=== PATIENT | male | born 1985 | race Caucasian/White ===

== ENCOUNTER 2019-12-21 18:20 | Inpatient (IN) | payer MEDICAID ==
[~2019-12-21] VITALS: Ht 172.7 cm; Wt 94.1 kg
[2019-12-21 20:10] LABS: EOSINOPHILS % (AUTO) 4.2 % (1.0-6.0); HEMATOCRIT 40.1 % (41-53); HEMOGLOBIN 13.2 g/dL (13.5-17.5); LYMPHOCYTES # (AUTO) 2.1 K/uL (1.0-4.8); LYMPHOCYTES % (AUTO) 27.3 % (22.0-44.0); MEAN CORPUSCULAR HEMOGLOBIN 29.9 pg (26.0-34.0); MEAN CORPUSCULAR HGB CONC 32.8 G/dL (31.0-37.0); MEAN CORPUSCULAR VOLUME 91 fL (80-100); MONOCYTES # (AUTO) 0.6 K/uL (0.1-1.0); MONOCYTES % (AUTO) 8.2 % (2.0-9.0); NEUTROPHILS # (AUTO) 4.6 K/uL (1.8-7.7); NEUTROPHILS % (AUTO) 59.3 % (40.0-70.0); PLATELET COUNT (AUTO) 368 K/uL (150-450); RED BLOOD CELL COUNT(AUTO) 4.39 MIL/uL (4.50-5.90)
[2019-12-21 20:18] LABS: AMPHET/METH SCREEN,URINE POSITIVE (NEGATIVE); BARBITURATE SCREEN, URINE NEGATIVE (NEGATIVE); BENZODIAZEPINES SCREEN,URINE NEGATIVE (NEGATIVE); CANNABINOID SCREEN,URINE POSITIVE (NEGATIVE); COCAINE SCREEN,URINE NEGATIVE (NEGATIVE); METHADONE SCREEN, URINE NEGATIVE (NEGATIVE); OPIATE SCREEN,URINE POSITIVE (NEGATIVE)
[2019-12-21 20:19] LABS: PHENCYCLIDINE SCREEN,URINE NEGATIVE (NEGATIVE)
[2019-12-21 20:40] LABS: ANION GAP 4 mmol/L (8-16); CALCIUM, TOTAL 8.6 mg/dL (8.8-10.5); CARBON DIOXIDE 30 mmol/L (22-29); CHLORIDE 105 mmol/L (98-107); CREATININE 0.97 mg/dL (0.60-1.30); GLOMERULAR FILTR. RATE CALC > 60 mL/min (>60); GLUCOSE,RANDOM 111 mg/dL (70-110); POTASSIUM 3.4 mmol/L (3.5-5.1); SODIUM SERUM 139 mmol/L (136-145); UREA NITROGEN, BLOOD 12 mg/dL (7-18)
[2019-12-21 20:47] LABS: ALANINE AMINOTRANSFERASE 29 U/L (12-78); ALBUMIN 3.5 g/dL (3.4-5.0); ALKALINE PHOSPHATASE 86 U/L (46-116); ASPARTATE AMINOTRANSFERASE 11 U/L (15-37); BILIRUBIN,TOTAL 0.2 mg/dL (0.1-1.0); TOTAL PROTEIN, SERUM 6.7 g/dL (6.4-8.2)
[2019-12-21] MEDS ORDERED: HALOPERIDOL LACTATE 5 MG/ML VIAL IM ONE (22:00)
[2019-12-21] MEDS ORDERED: DiphenhydrAMINE HCL 50 MG/ML VIAL IM ONE (22:00)
[2019-12-21] MEDS ORDERED: LORazepam 2 MG/ML VIAL IM ONE (22:00)
[2019-12-21] MEDS ORDERED: HALOPERIDOL 5 MG TABLET PO PRN (22:15)
[2019-12-21] MEDS ORDERED: ZOLPIDEM TARTRATE 10 MG TABLET PO PRN (22:15)
[2019-12-22 01:46] VITALS: BP 138/83
[2019-12-22] MEDS ORDERED: POTASSIUM CHLORIDE 20 MEQ ER TABLET PO ONE (13:00)
[2019-12-22 17:16] VITALS: BP 139/81
[2019-12-22] MEDS: OLANZapine 10 MG TABLET PO SCH (20:26)
[2019-12-22] MEDS: LORazepam 2 MG TABLET PO PRN (20:26)
[2019-12-23] MEDS ORDERED: ACETAMINOPHEN 325 MG TABLET PO PRN (05:00)
[2019-12-23 06:40] VITALS: BP 126/74
[2019-12-23] MEDS ORDERED: PETROLATUM,WHITE 28 GM JELLY TP PRN (07:45)
[2019-12-23] MEDS ORDERED: MAGNESIUM HYDROXIDE SUSPENSION 30 ML UDCUP PO PRN (07:45)
[2019-12-23] MEDS ORDERED: LOPERAMIDE HCL 2 MG CAPSULE PO PRN (07:45)
[2019-12-23] MEDS ORDERED: ALBUTEROL SULFATE HFA 90 MCG/PUFF 8 GM INHALER IH PRN (07:45)
[2019-12-23] MEDS ORDERED: OMEPRAZOLE 20 MG CAPSULE PO PRN (07:45)
[2019-12-23] MEDS ORDERED: ONDANSETRON HCL 4 MG TABLET PO PRN (07:45)
[2019-12-23] MEDS ORDERED: DOCUSATE SODIUM 100 MG CAPSULE PO PRN (07:45)
[2019-12-23] MEDS ORDERED: MAG HYDROX/AL HYDROX/SIMETH ES 30 ML SUSPENSION UDCUP PO PRN (07:45)
[2019-12-23] MEDS ORDERED: BACITRACIN 28 GM OINTMENT TP PRN (07:45)
[2019-12-23] MEDS ORDERED: CloNIDine HCL 0.1 MG TABLET PO PRN (07:45)
[2019-12-23] MEDS ORDERED: BENZOCAINE/MENTHOL LOZENGE PO PRN (07:45)
[2019-12-23] MEDS: LORazepam 2 MG TABLET PO PRN (08:51)
[2019-12-23] MEDS: OLANZapine 10 MG TABLET PO SCH ×2 (08:51→20:17)
[2019-12-23 16:16] VITALS: BP 130/69
[2019-12-24 04:31] VITALS: BP 128/70
[2019-12-24 08:27] VITALS: BP 136/87
[2019-12-24] MEDS: OLANZapine 10 MG TABLET PO SCH ×2 (08:53→20:50)
[2019-12-24] MEDS: LORazepam 2 MG TABLET PO PRN (16:14)
[2019-12-24 16:16] VITALS: BP 129/83
[2019-12-25 05:44] VITALS: BP 134/72
[2019-12-25 08:41] VITALS: BP 137/77
[2019-12-25] MEDS: OLANZapine 10 MG TABLET PO SCH ×2 (09:48→21:00)
[2019-12-25] MEDS: LORazepam 2 MG TABLET PO PRN ×3 (10:20→20:01)
[2019-12-25] MEDS: IBUPROFEN 600 MG TABLET PO PRN (11:00)
[2019-12-25 16:31] VITALS: BP 137/75
[2019-12-26 06:47] VITALS: BP 113/80
[2019-12-26] MEDS: IBUPROFEN 600 MG TABLET PO PRN (08:03)
[2019-12-26] MEDS: OLANZapine 10 MG TABLET PO SCH (08:05)
[2019-12-26 09:23] VITALS: BP 135/78
[2019-12-26] MEDS ORDERED: NICOTINE 21 MG/24 HOUR PATCH TD PRN (10:15)
[2019-12-26] MEDS ORDERED: OLAN5TAB2 PO (11:55)
== END 2019-12-26 13:47 | disposition home or self-care (01) | DRG 750 ==
LOC: EMS 18:21 → B3A 22:30 → B2S 12-25 20:48
DX: F20.0 Paranoid schizophrenia (principal); F12.10 Cannabis abuse, uncomplicated; F15.10 Other stimulant abuse, uncomplicated; R45.851 Suicidal ideations; K59.00 Constipation, unspecified; G47.00 Insomnia, unspecified; F41.9 Anxiety disorder, unspecified; F11.90 Opioid use, unspecified, uncomplicated; Z59.0 Homelessness; Z65.3 Problems related to other legal circumstances; Z72.0 Tobacco use; Z71.51 Drug abuse counseling and surveillance of drug abuser; Z71.6 Tobacco abuse counseling
CPT/HCPCS: 84132; G0480

== ENCOUNTER 2020-02-11 20:23 | Inpatient (IN) | payer MEDICAID ==
[~2020-02-11] VITALS: Ht 175.3 cm; Wt 93.0 kg
[~2020-02-11 20:23] MED LIST: OLAN5TAB2 PO
[2020-02-11 23:04] LABS: EOSINOPHILS % (AUTO) 4.5 % (1.0-6.0); HEMATOCRIT 38.6 % (41-53); HEMOGLOBIN 12.7 g/dL (13.5-17.5); LYMPHOCYTES # (AUTO) 2.1 K/uL (1.0-4.8); LYMPHOCYTES % (AUTO) 24.8 % (22.0-44.0); MEAN CORPUSCULAR HEMOGLOBIN 29.5 pg (26.0-34.0); MEAN CORPUSCULAR VOLUME 89 fL (80-100); MONOCYTES # (AUTO) 0.7 K/uL (0.1-1.0); MONOCYTES % (AUTO) 8.1 % (2.0-9.0); NEUTROPHILS # (AUTO) 5.2 K/uL (1.8-7.7); NEUTROPHILS % (AUTO) 61.6 % (40.0-70.0); PLATELET COUNT (AUTO) 366 K/uL (150-450); RED BLOOD CELL COUNT(AUTO) 4.32 MIL/uL (4.50-5.90); RED CELL DISTRIBUTION WIDTH 14.8 % (11.5-14.5)
[2020-02-11 23:14] LABS: ANION GAP 11 mmol/L (8-16); CALCIUM, TOTAL 8.4 mg/dL (8.8-10.5); CARBON DIOXIDE 26 mmol/L (22-29); CHLORIDE 105 mmol/L (98-107); CREATININE 0.88 mg/dL (0.60-1.30); GLOMERULAR FILTR. RATE CALC > 60 mL/min (>60); GLUCOSE,RANDOM 106 mg/dL (70-110); POTASSIUM 3.9 mmol/L (3.5-5.1); SODIUM SERUM 142 mmol/L (136-145); UREA NITROGEN, BLOOD 12 mg/dL (7-18)
[2020-02-11 23:21] LABS: ALANINE AMINOTRANSFERASE 20 U/L (12-78); ALBUMIN 3.2 g/dL (3.4-5.0); ALKALINE PHOSPHATASE 72 U/L (46-116); ASPARTATE AMINOTRANSFERASE 10 U/L (15-37); BILIRUBIN,TOTAL 0.1 mg/dL (0.1-1.0); TOTAL PROTEIN, SERUM 5.9 g/dL (6.4-8.2)
[2020-02-12] MEDS ORDERED: VENL50TA44 PO (00:05)
[2020-02-12] MEDS ORDERED: BUPR1FIL7 SL (00:05)
[2020-02-12 00:20] LABS: COVID AG,FIA SOURCE NASOPHARYNGEAL
[2020-02-12] MEDS ORDERED: OLANZapine 5 MG RAPDIS TABLET PO PRN (01:00)
[2020-02-12] MEDS ORDERED: ZOLPIDEM TARTRATE 10 MG TABLET PO PRN (01:00)
[2020-02-12 04:05] VITALS: BP 138/89
[2020-02-12] MEDS ORDERED: INFLUENZA VIRUS VACCINE QVS 2020-21 (6MO+)/PF 60 MCG/0.5 ML SYRINGE IM ONE (06:30)
[2020-02-12 08:22] VITALS: BP 143/93
[2020-02-12] MEDS ORDERED: LOPERAMIDE HCL 2 MG CAPSULE PO PRN (15:15)
[2020-02-12] MEDS ORDERED: MAGNESIUM HYDROXIDE SUSPENSION 30 ML UDCUP PO PRN (15:15)
[2020-02-12] MEDS ORDERED: HydrOXYzine PAMOATE 50 MG CAPSULE PO PRN (15:15)
[2020-02-12] MEDS ORDERED: ACETAMINOPHEN 325 MG TABLET PO PRN (15:15)
[2020-02-12] MEDS ORDERED: PROMETHAZINE HCL 25 MG TABLET PO PRN (15:15)
[2020-02-12] MEDS ORDERED: GuaiFENesin/D-METHORPHAN [SUGAR-FREE] 200-20MG/10 ML SYRUP UDCUP PO PRN (15:15)
[2020-02-12] MEDS ORDERED: PALIPERIDONE PALMITATE 234 MG/1.5 ML SYRINGE IM ONE (15:15)
[2020-02-12] MEDS ORDERED: MAG HYDROX/AL HYDROX/SIMETH ES 30 ML SUSPENSION UDCUP PO PRN (15:15)
[2020-02-12] MEDS ORDERED: TUBERCULIN, PURIFIED PROTEIN DERIVATIVE 5 TU/0.1 ML SYRINGE ID ONE (15:15)
[2020-02-12] MEDS: THIAMINE 100 MG TABLET PO SCH (16:08)
[2020-02-12] MEDS: LORazepam 2 MG TABLET PO PRN (16:08)
[2020-02-12 16:35] VITALS: BP 129/80
[2020-02-12] MEDS ORDERED: OLANZapine 5 MG RAPDIS TABLET PO SCH (21:00)
[2020-02-13 03:29] VITALS: BP 122/88
[2020-02-13 08:06] VITALS: BP 133/78
[2020-02-13] MEDS: FOLIC ACID 1 MG TABLET PO SCH (08:23)
[2020-02-13] MEDS: OMEGA-3/DHA/EPA/FISH OIL 1,000 MG CAPSULE PO SCH (08:23)
[2020-02-13] MEDS: NALTREXONE HCL 50 MG TABLET PO SCH (08:23)
[2020-02-13] MEDS: THIAMINE 100 MG TABLET PO SCH ×2 (08:23→16:49)
[2020-02-13] MEDS: MULTIVITAMINS WITH MINERALS, THERAPEUTIC TABLET PO SCH (08:23)
[2020-02-13 08:32] LABS: HEMOGLOBIN A1C 5.4 % (3.8-5.6)
[2020-02-13 08:42] LABS: FREE T4 (FREE THYROXINE) 0.78 ng/dL (0.76-1.46); THYROID STIMULATING HORMONE 2.13 uIU/mL (0.36-3.74)
[2020-02-13] MEDS: LORazepam 2 MG TABLET PO PRN (16:33)
[2020-02-13 16:35] VITALS: BP 141/79
[2020-02-13] MEDS: OLANZapine 10 MG RAPDIS TABLET PO SCH (20:24)
[2020-02-14 02:05] VITALS: BP 129/83
[2020-02-14 08:10] VITALS: BP 139/83
[2020-02-14] MEDS: THIAMINE 100 MG TABLET PO SCH ×2 (08:51→16:27)
[2020-02-14] MEDS: NALTREXONE HCL 50 MG TABLET PO SCH (08:51)
[2020-02-14] MEDS: OMEGA-3/DHA/EPA/FISH OIL 1,000 MG CAPSULE PO SCH (08:51)
[2020-02-14] MEDS: FOLIC ACID 1 MG TABLET PO SCH (08:52)
[2020-02-14] MEDS: MULTIVITAMINS WITH MINERALS, THERAPEUTIC TABLET PO SCH (08:52)
[2020-02-14] MEDS ORDERED: ACAM333T7 PO (13:51)
[2020-02-14] MEDS ORDERED: OLAN10TA22 PO (13:51)
[2020-02-14] MEDS ORDERED: OMEG-135 PO (13:51)
[2020-02-14 16:15] VITALS: BP 117/73
[2020-02-14] MEDS: ACAMPROSATE CALCIUM 333 MG DR TABLET PO SCH (16:27)
[2020-02-14] MEDS: LORazepam 2 MG TABLET PO PRN (16:27)
[2020-02-14] MEDS: OLANZapine 10 MG RAPDIS TABLET PO SCH (20:17)
[2020-02-15 02:01] VITALS: BP 132/72
[2020-02-15] MEDS: FOLIC ACID 1 MG TABLET PO SCH (08:40)
[2020-02-15] MEDS: OMEGA-3/DHA/EPA/FISH OIL 1,000 MG CAPSULE PO SCH (08:40)
[2020-02-15] MEDS: ACAMPROSATE CALCIUM 333 MG DR TABLET PO SCH (08:40)
[2020-02-15] MEDS: MULTIVITAMINS WITH MINERALS, THERAPEUTIC TABLET PO SCH (08:40)
[2020-02-15] MEDS: THIAMINE 100 MG TABLET PO SCH (08:40)
[2020-02-16] MEDS ORDERED: PALIPERIDONE PALMITATE 156 MG/ML SYRINGE IM ONE (09:00)
== END 2020-02-15 08:50 | disposition home or self-care (01) | DRG 750 ==
LOC: EMS 20:25 → B3A 02-12 01:50
PROVIDERS: ADMIT Psychiatry & Neurology Psychiatry; ATTEND Psychiatry & Neurology Psychiatry
DX: F20.0 Paranoid schizophrenia (principal); F11.90 Opioid use, unspecified, uncomplicated; F10.10 Alcohol abuse, uncomplicated; R45.850 Homicidal ideations; F19.20 Other psychoactive substance dependence, uncomplicated; D64.9 Anemia, unspecified; E87.6 Hypokalemia; F12.90 Cannabis use, unspecified, uncomplicated; Z20.828 Contact with and (suspected) exposure to other viral communicable diseases; F15.90 Other stimulant use, unspecified, uncomplicated; I50.9 Heart failure, unspecified; Z59.9 Problem related to housing and economic circumstances, unspecified; Z55.9 Problems related to education and literacy, unspecified; Z65.3 Problems related to other legal circumstances; Z91.5 Personal history of self-harm
CPT/HCPCS: 83036; 84439; 84443; 87426; 90686; G0480

== ENCOUNTER 2020-02-27 15:12 | Inpatient (IN) | payer MEDICAID ==
[~2020-02-27] VITALS: Ht 175.3 cm; Wt 94.8 kg
[~2020-02-27 15:12] MED LIST changes: +ACAM333T7 PO; +OLAN10TA22 PO; -OLAN5TAB2 PO; +OMEG-135 PO
[2020-02-27] MEDS ORDERED: GuaiFENesin/D-METHORPHAN [SUGAR-FREE] 200-20MG/10 ML SYRUP UDCUP PO PRN (16:15)
[2020-02-27] MEDS ORDERED: PROMETHAZINE HCL 25 MG TABLET PO PRN (16:15)
[2020-02-27] MEDS ORDERED: OLANZapine 5 MG RAPDIS TABLET PO PRN (16:15)
[2020-02-27] MEDS ORDERED: HydrOXYzine PAMOATE 50 MG CAPSULE PO PRN (16:15)
[2020-02-27] MEDS ORDERED: LOPERAMIDE HCL 2 MG CAPSULE PO PRN (16:15)
[2020-02-27] MEDS ORDERED: MAGNESIUM HYDROXIDE SUSPENSION 30 ML UDCUP PO PRN (16:15)
[2020-02-27] MEDS ORDERED: MAG HYDROX/AL HYDROX/SIMETH ES 30 ML SUSPENSION UDCUP PO PRN (16:15)
[2020-02-27] MEDS ORDERED: OMEG-135 PO (16:18)
[2020-02-27] MEDS ORDERED: OLAN10TA3 PO (16:18)
[2020-02-27] MEDS ORDERED: ACAM333T7 PO (16:18)
[2020-02-27] MEDS ORDERED: INFLUENZA VIRUS VACCINE QVS 2020-21 (6MO+)/PF 60 MCG/0.5 ML SYRINGE IM ONE (20:30)
[2020-02-27] MEDS: ACAMPROSATE CALCIUM 333 MG DR TABLET PO SCH (21:02)
[2020-02-27] MEDS: ZOLPIDEM TARTRATE 10 MG TABLET PO PRN (21:03)
[2020-02-27] MEDS: OLANZapine 5 MG RAPDIS TABLET PO SCH (21:03)
[2020-02-27] MEDS: THIAMINE 100 MG TABLET PO SCH (21:03)
[2020-02-27 21:14] VITALS: BP 135/78
[2020-02-28 06:26] VITALS: BP 128/78
[2020-02-28 08:09] LABS: BASOPHILS % (AUTO) 0.7 % (0.0-2.0); EOSINOPHILS % (AUTO) 4.2 % (1.0-6.0); HEMATOCRIT 41.8 % (41-53); HEMOGLOBIN 14.1 g/dL (13.5-17.5); LYMPHOCYTES # (AUTO) 1.3 K/uL (1.0-4.8); MEAN CORPUSCULAR HEMOGLOBIN 29.7 pg (26.0-34.0); MEAN CORPUSCULAR HGB CONC 33.6 G/dL (31.0-37.0); MEAN CORPUSCULAR VOLUME 88 fL (80-100); MONOCYTES # (AUTO) 0.6 K/uL (0.1-1.0); MONOCYTES % (AUTO) 7.6 % (2.0-9.0); NEUTROPHILS # (AUTO) 5.6 K/uL (1.8-7.7); NEUTROPHILS % (AUTO) 70.5 % (40.0-70.0); PLATELET COUNT (AUTO) 444 K/uL (150-450); RED BLOOD CELL COUNT(AUTO) 4.73 MIL/uL (4.50-5.90); RED CELL DISTRIBUTION WIDTH 15.9 % (11.5-14.5)
[2020-02-28 08:15] LABS: HEMOGLOBIN A1C 5.6 % (3.8-5.6)
[2020-02-28 08:28] LABS: ALANINE AMINOTRANSFERASE 22 U/L (12-78); ALBUMIN 3.2 g/dL (3.4-5.0); ALKALINE PHOSPHATASE 64 U/L (46-116); ANION GAP 7 mmol/L (8-16); ASPARTATE AMINOTRANSFERASE 12 U/L (15-37); BILIRUBIN,TOTAL 0.1 mg/dL (0.1-1.0); CALCIUM, TOTAL 8.7 mg/dL (8.8-10.5); CARBON DIOXIDE 27 mmol/L (22-29); CHLORIDE 105 mmol/L (98-107); CHOL/HDL RATIO 3.9 (4.2-7.3); CHOLESTEROL 149 mg/dL (131-200); CREATININE 0.93 mg/dL (0.60-1.30); FREE T4 (FREE THYROXINE) 0.93 ng/dL (0.76-1.46); GLOMERULAR FILTR. RATE CALC > 60 mL/min (>60); GLUCOSE,RANDOM 96 mg/dL (70-110); HDL CHOLESTEROL 38 mg/dL (40-60); LDL CHOL (CALC.) 97 mg/dL (0-130); POTASSIUM 4.4 mmol/L (3.5-5.1); SODIUM SERUM 139 mmol/L (136-145); THYROID STIMULATING HORMONE 3.75 uIU/mL (0.36-3.74); TRIGLYCERIDES 71 mg/dL (15-150); UREA NITROGEN, BLOOD 16 mg/dL (7-18)
[2020-02-28] MEDS: OMEGA-3/DHA/EPA/FISH OIL 1,000 MG CAPSULE PO SCH (09:13)
[2020-02-28] MEDS: ACAMPROSATE CALCIUM 333 MG DR TABLET PO SCH ×3 (09:13→16:21)
[2020-02-28] MEDS: THIAMINE 100 MG TABLET PO SCH ×2 (09:14→16:21)
[2020-02-28] MEDS: FLUoxetine HCL 20 MG CAPSULE PO SCH (09:14)
[2020-02-28] MEDS: FOLIC ACID 1 MG TABLET PO SCH (09:14)
[2020-02-28] MEDS: MULTIVITAMINS WITH MINERALS, THERAPEUTIC TABLET PO SCH (09:14)
[2020-02-28 16:08] VITALS: BP 127/73
[2020-02-28] MEDS: LORazepam 2 MG TABLET PO PRN (16:21)
[2020-02-28] MEDS: OLANZapine 5 MG RAPDIS TABLET PO SCH (20:13)
[2020-02-29 01:36] VITALS: BP 145/94
[2020-02-29] MEDS: FOLIC ACID 1 MG TABLET PO SCH (08:13)
[2020-02-29] MEDS: ACAMPROSATE CALCIUM 333 MG DR TABLET PO SCH ×3 (08:13→16:01)
[2020-02-29] MEDS: FLUoxetine HCL 20 MG CAPSULE PO SCH (08:13)
[2020-02-29] MEDS: THIAMINE 100 MG TABLET PO SCH ×2 (08:13→16:01)
[2020-02-29] MEDS: MULTIVITAMINS WITH MINERALS, THERAPEUTIC TABLET PO SCH (08:13)
[2020-02-29] MEDS: OMEGA-3/DHA/EPA/FISH OIL 1,000 MG CAPSULE PO SCH (08:13)
[2020-02-29 08:20] VITALS: BP 122/69
[2020-02-29 17:08] VITALS: BP 149/95
[2020-02-29] MEDS: OLANZapine 5 MG RAPDIS TABLET PO SCH (20:16)
[2020-02-29] MEDS: ZOLPIDEM TARTRATE 10 MG TABLET PO PRN (20:17)
[2020-03-01 04:49] VITALS: BP 125/74
[2020-03-01] MEDS: THIAMINE 100 MG TABLET PO SCH ×2 (08:07→16:21)
[2020-03-01] MEDS: OMEGA-3/DHA/EPA/FISH OIL 1,000 MG CAPSULE PO SCH (08:07)
[2020-03-01] MEDS: ACAMPROSATE CALCIUM 333 MG DR TABLET PO SCH ×3 (08:07→16:21)
[2020-03-01] MEDS: MULTIVITAMINS WITH MINERALS, THERAPEUTIC TABLET PO SCH (08:07)
[2020-03-01] MEDS: FOLIC ACID 1 MG TABLET PO SCH (08:07)
[2020-03-01] MEDS: FLUoxetine HCL 20 MG CAPSULE PO SCH (08:07)
[2020-03-01 08:56] VITALS: BP 145/87
[2020-03-01] MEDS: LORazepam 2 MG TABLET PO PRN (14:02)
[2020-03-01 16:06] VITALS: BP_SYST 107; BP_SYST 139; BP_DIAS 67; BP_DIAS 81
[2020-03-01] MEDS: NICOTINE 21 MG/24 HOUR PATCH TD SCH (16:21)
[2020-03-01] MEDS: OLANZapine 5 MG RAPDIS TABLET PO SCH (20:18)
[2020-03-02 03:19] VITALS: BP 105/64
[2020-03-02] MEDS: MULTIVITAMINS WITH MINERALS, THERAPEUTIC TABLET PO SCH (08:26)
[2020-03-02] MEDS: ACAMPROSATE CALCIUM 333 MG DR TABLET PO SCH ×3 (08:26→17:20)
[2020-03-02] MEDS: OMEGA-3/DHA/EPA/FISH OIL 1,000 MG CAPSULE PO SCH (08:27)
[2020-03-02] MEDS: NICOTINE 21 MG/24 HOUR PATCH TD SCH (08:27)
[2020-03-02] MEDS: THIAMINE 100 MG TABLET PO SCH ×2 (08:27→17:20)
[2020-03-02] MEDS: FLUoxetine HCL 20 MG CAPSULE PO SCH (08:27)
[2020-03-02] MEDS: FOLIC ACID 1 MG TABLET PO SCH (08:29)
[2020-03-02 08:31] VITALS: BP 131/77
[2020-03-02] MEDS: LORazepam 2 MG TABLET PO PRN ×2 (10:48→17:20)
[2020-03-02 16:54] VITALS: BP 129/87
[2020-03-02] MEDS: ZOLPIDEM TARTRATE 10 MG TABLET PO PRN (20:37)
[2020-03-02] MEDS: OLANZapine 5 MG RAPDIS TABLET PO SCH (20:37)
[2020-03-03 00:04] VITALS: BP 124/75
[2020-03-03 08:05] VITALS: BP 132/74
[2020-03-03] MEDS: MULTIVITAMINS WITH MINERALS, THERAPEUTIC TABLET PO SCH (08:45)
[2020-03-03] MEDS: NICOTINE 21 MG/24 HOUR PATCH TD SCH (08:45)
[2020-03-03] MEDS: THIAMINE 100 MG TABLET PO SCH ×2 (08:45→17:24)
[2020-03-03] MEDS: ACAMPROSATE CALCIUM 333 MG DR TABLET PO SCH ×2 (08:45→12:57)
[2020-03-03] MEDS: OMEGA-3/DHA/EPA/FISH OIL 1,000 MG CAPSULE PO SCH (08:45)
[2020-03-03] MEDS: FLUoxetine HCL 20 MG CAPSULE PO SCH (08:46)
[2020-03-03] MEDS: FOLIC ACID 1 MG TABLET PO SCH (08:46)
[2020-03-03] MEDS ORDERED: BISACODYL 5 MG EC TABLET PO PRN (10:00)
[2020-03-03 16:28] VITALS: BP 131/91
[2020-03-03 17:10] VITALS: BP 128/78
[2020-03-03] MEDS: LORazepam 2 MG TABLET PO PRN (17:24)
[2020-03-03] MEDS: ACETAMINOPHEN 325 MG TABLET PO PRN (17:28)
[2020-03-03] MEDS: ZOLPIDEM TARTRATE 10 MG TABLET PO PRN (21:15)
[2020-03-03] MEDS: OLANZapine 10 MG RAPDIS TABLET PO SCH (21:15)
[2020-03-04 06:18] VITALS: BP 140/84
[2020-03-04 08:05] VITALS: BP 126/75
[2020-03-04] MEDS: OMEGA-3/DHA/EPA/FISH OIL 1,000 MG CAPSULE PO SCH (09:21)
[2020-03-04] MEDS: NICOTINE 21 MG/24 HOUR PATCH TD SCH (09:21)
[2020-03-04] MEDS: FLUoxetine HCL 20 MG CAPSULE PO SCH (09:21)
[2020-03-04] MEDS: MULTIVITAMINS WITH MINERALS, THERAPEUTIC TABLET PO SCH (09:21)
[2020-03-04] MEDS: FOLIC ACID 1 MG TABLET PO SCH (09:22)
[2020-03-04] MEDS: THIAMINE 100 MG TABLET PO SCH ×2 (09:22→17:32)
[2020-03-04] MEDS: NALTREXONE HCL 50 MG TABLET PO SCH (09:22)
[2020-03-04 10:00] VITALS: BP 132/81
[2020-03-04] MEDS: LORazepam 2 MG TABLET PO PRN ×2 (10:05→17:52)
[2020-03-04] MEDS: ACETAMINOPHEN 325 MG TABLET PO PRN (10:05)
[2020-03-04] MEDS ORDERED: IBUPROFEN 600 MG TABLET PO PRN (15:30)
[2020-03-04 16:07] VITALS: BP 132/76
[2020-03-04] MEDS: OLANZapine 10 MG RAPDIS TABLET PO SCH (20:21)
[2020-03-05 06:34] VITALS: BP 127/71
[2020-03-05 08:05] LABS: APPEARANCE,URINE CLEAR (CLEAR); BILIRUBIN,URINE NEGATIVE (NEGATIVE); GLUCOSE, URINE (UA) NEGATIVE (NEGATIVE); KETONES,URINE NEGATIVE (NEGATIVE); LEUKOCYTE ESTERASE ,URINE NEGATIVE (NEGATIVE); NITRATE,URINE NEGATIVE (NEGATIVE); OCCULT BLOOD,URINE NEGATIVE (NEGATIVE); PROTEIN,URINE NEGATIVE (NEGATIVE); UROBILINOGEN,URINE 0.2 mg/dL (<=1.0)
[2020-03-05 08:18] LABS: AMPHET/METH SCREEN,URINE NEGATIVE (NEGATIVE); BARBITURATE SCREEN, URINE NEGATIVE (NEGATIVE); BENZODIAZEPINES SCREEN,URINE NEGATIVE (NEGATIVE); CANNABINOID SCREEN,URINE NEGATIVE (NEGATIVE); COCAINE SCREEN,URINE NEGATIVE (NEGATIVE); METHADONE SCREEN, URINE NEGATIVE (NEGATIVE); OPIATE SCREEN,URINE NEGATIVE (NEGATIVE)
[2020-03-05 08:20] LABS: PHENCYCLIDINE SCREEN,URINE NEGATIVE (NEGATIVE)
[2020-03-05] MEDS: DULoxetine HCL 20 MG CAPSULE PO SCH (10:19)
[2020-03-05] MEDS: NALTREXONE HCL 50 MG TABLET PO SCH (10:19)
[2020-03-05] MEDS: FOLIC ACID 1 MG TABLET PO SCH (10:19)
[2020-03-05] MEDS: GABAPENTIN 400 MG CAPSULE PO SCH ×3 (10:19→16:52)
[2020-03-05] MEDS: OMEGA-3/DHA/EPA/FISH OIL 1,000 MG CAPSULE PO SCH (10:19)
[2020-03-05] MEDS: THIAMINE 100 MG TABLET PO SCH ×2 (10:20→16:52)
[2020-03-05] MEDS: MULTIVITAMINS WITH MINERALS, THERAPEUTIC TABLET PO SCH (10:20)
[2020-03-05] MEDS: NICOTINE 21 MG/24 HOUR PATCH TD SCH (10:20)
[2020-03-05] MEDS: LORazepam 2 MG TABLET PO PRN (16:52)
[2020-03-05] MEDS: OLANZapine 10 MG RAPDIS TABLET PO SCH (20:36)
[2020-03-06] MEDS: FOLIC ACID 1 MG TABLET PO SCH (09:24)
[2020-03-06] MEDS: DULoxetine HCL 20 MG CAPSULE PO SCH (09:24)
[2020-03-06] MEDS: MULTIVITAMINS WITH MINERALS, THERAPEUTIC TABLET PO SCH (09:24)
[2020-03-06] MEDS: OMEGA-3/DHA/EPA/FISH OIL 1,000 MG CAPSULE PO SCH (09:24)
[2020-03-06] MEDS: THIAMINE 100 MG TABLET PO SCH ×2 (09:24→16:48)
[2020-03-06] MEDS: GABAPENTIN 400 MG CAPSULE PO SCH ×2 (09:24→12:23)
[2020-03-06] MEDS: NALTREXONE HCL 50 MG TABLET PO SCH (09:24)
[2020-03-06] MEDS: NICOTINE 21 MG/24 HOUR PATCH TD SCH (09:27)
[2020-03-06] MEDS: LORazepam 2 MG TABLET PO PRN ×2 (10:16→16:48)
[2020-03-06 15:14] VITALS: BP 108/87
[2020-03-06 16:09] VITALS: BP 120/80
[2020-03-06] MEDS: GABAPENTIN 100 MG CAPSULE PO SCH (16:48)
[2020-03-06] MEDS: GABAPENTIN 300 MG CAPSULE PO SCH (16:48)
[2020-03-06] MEDS: OLANZapine 10 MG RAPDIS TABLET PO SCH (20:11)
[2020-03-07 08:07] VITALS: BP 139/76
[2020-03-07] MEDS: GABAPENTIN 100 MG CAPSULE PO SCH ×3 (08:37→16:23)
[2020-03-07] MEDS: GABAPENTIN 300 MG CAPSULE PO SCH ×3 (08:37→16:23)
[2020-03-07] MEDS: MULTIVITAMINS WITH MINERALS, THERAPEUTIC TABLET PO SCH (08:38)
[2020-03-07] MEDS: OMEGA-3/DHA/EPA/FISH OIL 1,000 MG CAPSULE PO SCH (08:38)
[2020-03-07] MEDS: DULoxetine HCL 30 MG CAPSULE PO SCH (08:38)
[2020-03-07] MEDS: FOLIC ACID 1 MG TABLET PO SCH (08:38)
[2020-03-07] MEDS: NALTREXONE HCL 50 MG TABLET PO SCH (08:38)
[2020-03-07] MEDS: THIAMINE 100 MG TABLET PO SCH (08:38)
[2020-03-07] MEDS: NICOTINE 21 MG/24 HOUR PATCH TD SCH (08:39)
[2020-03-07] MEDS: LORazepam 2 MG TABLET PO PRN ×2 (11:00→16:23)
[2020-03-07 16:10] VITALS: BP 130/91
[2020-03-07] MEDS: OLANZapine 10 MG RAPDIS TABLET PO SCH (20:19)
[2020-03-07] MEDS: ZOLPIDEM TARTRATE 10 MG TABLET PO PRN (20:20)
[2020-03-08 06:14] VITALS: BP 120/74
[2020-03-08 08:10] VITALS: BP 132/67
[2020-03-08] MEDS: NALTREXONE HCL 50 MG TABLET PO SCH (08:17)
[2020-03-08] MEDS: GABAPENTIN 100 MG CAPSULE PO SCH ×3 (08:17→16:07)
[2020-03-08] MEDS: GABAPENTIN 300 MG CAPSULE PO SCH ×3 (08:17→16:07)
[2020-03-08] MEDS: DULoxetine HCL 30 MG CAPSULE PO SCH (08:17)
[2020-03-08] MEDS: OMEGA-3/DHA/EPA/FISH OIL 1,000 MG CAPSULE PO SCH (08:18)
[2020-03-08] MEDS: BuPROPion HCL XL 150 MG ER TABLET PO SCH (08:18)
[2020-03-08] MEDS: FOLIC ACID 1 MG TABLET PO SCH (08:18)
[2020-03-08] MEDS: NICOTINE 21 MG/24 HOUR PATCH TD SCH (08:18)
[2020-03-08] MEDS: MULTIVITAMINS WITH MINERALS, THERAPEUTIC TABLET PO SCH (08:18)
[2020-03-08] MEDS: LORazepam 2 MG TABLET PO PRN ×2 (10:29→18:32)
[2020-03-08 16:12] VITALS: BP 157/94
[2020-03-08] MEDS: OLANZapine 10 MG RAPDIS TABLET PO SCH (20:49)
[2020-03-09 06:15] VITALS: BP 116/65
[2020-03-09] MEDS: GABAPENTIN 100 MG CAPSULE PO SCH ×3 (08:12→16:41)
[2020-03-09] MEDS: GABAPENTIN 300 MG CAPSULE PO SCH ×3 (08:12→16:42)
[2020-03-09] MEDS: DULoxetine HCL 30 MG CAPSULE PO SCH (08:13)
[2020-03-09] MEDS: NALTREXONE HCL 50 MG TABLET PO SCH (08:13)
[2020-03-09] MEDS: BuPROPion HCL XL 150 MG ER TABLET PO SCH (08:13)
[2020-03-09] MEDS: MULTIVITAMINS WITH MINERALS, THERAPEUTIC TABLET PO SCH (08:13)
[2020-03-09] MEDS: OMEGA-3/DHA/EPA/FISH OIL 1,000 MG CAPSULE PO SCH (08:13)
[2020-03-09] MEDS: NICOTINE 21 MG/24 HOUR PATCH TD SCH ×2 (08:14→08:58)
[2020-03-09 09:04] VITALS: BP 127/84
[2020-03-09] MEDS: LORazepam 2 MG TABLET PO PRN ×2 (11:25→16:32)
[2020-03-09 17:04] VITALS: BP 125/85
[2020-03-09] MEDS: ZOLPIDEM TARTRATE 10 MG TABLET PO PRN (20:20)
[2020-03-09] MEDS: OLANZapine 10 MG RAPDIS TABLET PO SCH (20:20)
[2020-03-10] VITALS: BP 122/74
[2020-03-10 08:04] VITALS: BP 122/78
[2020-03-10] MEDS: MULTIVITAMINS WITH MINERALS, THERAPEUTIC TABLET PO SCH (08:09)
[2020-03-10] MEDS: GABAPENTIN 100 MG CAPSULE PO SCH ×2 (08:09→12:27)
[2020-03-10] MEDS: NICOTINE 21 MG/24 HOUR PATCH TD SCH (08:09)
[2020-03-10] MEDS: GABAPENTIN 300 MG CAPSULE PO SCH ×2 (08:09→12:27)
[2020-03-10] MEDS: DULoxetine HCL 30 MG CAPSULE PO SCH (08:09)
[2020-03-10] MEDS: OMEGA-3/DHA/EPA/FISH OIL 1,000 MG CAPSULE PO SCH (08:09)
[2020-03-10] MEDS: NALTREXONE HCL 50 MG TABLET PO SCH (08:09)
[2020-03-10] MEDS: BuPROPion HCL XL 150 MG ER TABLET PO SCH (08:09)
[2020-03-10] MEDS: LORazepam 2 MG TABLET PO PRN (10:55)
[2020-03-10] MEDS ORDERED: OMEG-135 PO (13:01)
[2020-03-10] MEDS ORDERED: BUPR-47 PO (13:01)
[2020-03-10] MEDS ORDERED: DULO30CA96 PO (13:01)
[2020-03-10] MEDS ORDERED: NALT50TA PO (13:01)
[2020-03-10] MEDS ORDERED: OLAN10TA22 PO (13:01)
[2020-03-10] MEDS ORDERED: GABA-1216 PO (13:01)
[2020-03-10 19:15] LABS: COVID AG,FIA SOURCE NASOPHARYNGEAL
== END 2020-03-10 15:30 | disposition home or self-care (01) | DRG 750 ==
LOC: B3A 20:32
PROVIDERS: ADMIT Psychiatry & Neurology Psychiatry; ATTEND Psychiatry & Neurology Psychiatry
DX: F25.0 Schizoaffective disorder, bipolar type (principal); D64.9 Anemia, unspecified; E03.9 Hypothyroidism, unspecified; E87.6 Hypokalemia; G93.41 Metabolic encephalopathy; F41.9 Anxiety disorder, unspecified; G89.29 Other chronic pain; R41.843 Psychomotor deficit; Z20.828 Contact with and (suspected) exposure to other viral communicable diseases; R45.87 Impulsiveness; Z59.0 Homelessness; Z79.899 Other long term (current) drug therapy; Z28.21 Immunization not carried out because of patient refusal; Z55.9 Problems related to education and literacy, unspecified; Z59.9 Problem related to housing and economic circumstances, unspecified; Z65.3 Problems related to other legal circumstances; Z91.19 Patient's noncompliance with other medical treatment and regimen
CPT/HCPCS: 80307; 83036; 84439; 84443; 86592; 87081; 87426; 90686

== ENCOUNTER 2020-03-16 01:43 | Inpatient (IN) | payer MEDICAID ==
[~2020-03-16] VITALS: Ht 175.3 cm; Wt 95.4 kg
[~2020-03-16 01:43] MED LIST changes: -ACAM333T7 PO; +DULO30CA96 PO; +GABA-1216 PO; +NALT50TA PO; -OMEG-135 PO
[2020-03-16 02:48] LABS: EOSINOPHILS % (AUTO) 5.4 % (1.0-6.0); HEMOGLOBIN 13.4 g/dL (13.5-17.5); LYMPHOCYTES # (AUTO) 1.6 K/uL (1.0-4.8); LYMPHOCYTES % (AUTO) 20.4 % (22.0-44.0); MEAN CORPUSCULAR HEMOGLOBIN 29.6 pg (26.0-34.0); MEAN CORPUSCULAR HGB CONC 33.5 G/dL (31.0-37.0); MEAN CORPUSCULAR VOLUME 88 fL (80-100); MONOCYTES # (AUTO) 0.7 K/uL (0.1-1.0); MONOCYTES % (AUTO) 9.3 % (2.0-9.0); NEUTROPHILS # (AUTO) 5.1 K/uL (1.8-7.7); NEUTROPHILS % (AUTO) 63.9 % (40.0-70.0); PLATELET COUNT (AUTO) 382 K/uL (150-450); RED BLOOD CELL COUNT(AUTO) 4.52 MIL/uL (4.50-5.90); RED CELL DISTRIBUTION WIDTH 16.6 % (11.5-14.5)
[2020-03-16 02:52] LABS: ANION GAP 13 mmol/L (8-16); CALCIUM, TOTAL 7.9 mg/dL (8.8-10.5); CARBON DIOXIDE 24 mmol/L (22-29); CHLORIDE 107 mmol/L (98-107); CREATININE 1.06 mg/dL (0.60-1.30); GLOMERULAR FILTR. RATE CALC > 60 mL/min (>60); GLUCOSE,RANDOM 113 mg/dL (70-110); POTASSIUM 3.9 mmol/L (3.5-5.1); SODIUM SERUM 144 mmol/L (136-145); UREA NITROGEN, BLOOD 16 mg/dL (7-18)
[2020-03-16 02:58] LABS: ALANINE AMINOTRANSFERASE 28 U/L (12-78); ALBUMIN 3.4 g/dL (3.4-5.0); ALKALINE PHOSPHATASE 88 U/L (46-116); ASPARTATE AMINOTRANSFERASE 16 U/L (15-37); BILIRUBIN,TOTAL 0.2 mg/dL (0.1-1.0); TOTAL PROTEIN, SERUM 6.8 g/dL (6.4-8.2)
[2020-03-16 03:08] LABS: COVID AG,FIA SOURCE NASOPHARYNGEAL
[2020-03-16] MEDS ORDERED: ZOLPIDEM TARTRATE 10 MG TABLET PO PRN (03:30)
[2020-03-16] MEDS ORDERED: OLANZapine 5 MG RAPDIS TABLET PO PRN (03:30)
[2020-03-16 12:12] LABS: APPEARANCE,URINE CLEAR (CLEAR); BILIRUBIN,URINE NEGATIVE (NEGATIVE); GLUCOSE, URINE (UA) NEGATIVE (NEGATIVE); KETONES,URINE NEGATIVE (NEGATIVE); LEUKOCYTE ESTERASE ,URINE NEGATIVE (NEGATIVE); NITRATE,URINE NEGATIVE (NEGATIVE); OCCULT BLOOD,URINE NEGATIVE (NEGATIVE); PH,URINE 5.5 (5.0-8.0); PROTEIN,URINE NEGATIVE (NEGATIVE); UROBILINOGEN,URINE 0.2 mg/dL (<=1.0)
[2020-03-16 12:17] LABS: AMPHET/METH SCREEN,URINE POSITIVE (NEGATIVE); BARBITURATE SCREEN, URINE NEGATIVE (NEGATIVE); BENZODIAZEPINES SCREEN,URINE NEGATIVE (NEGATIVE); CANNABINOID SCREEN,URINE NEGATIVE (NEGATIVE); COCAINE SCREEN,URINE NEGATIVE (NEGATIVE); METHADONE SCREEN, URINE NEGATIVE (NEGATIVE); OPIATE SCREEN,URINE NEGATIVE (NEGATIVE); PHENCYCLIDINE SCREEN,URINE NEGATIVE (NEGATIVE)
[2020-03-16 15:11] VITALS: BP 156/91
[2020-03-16 16:16] VITALS: BP 125/80
[2020-03-16] MEDS: OLANZapine 10 MG RAPDIS TABLET PO SCH (20:46)
[2020-03-17 01:10] VITALS: BP 128/73
[2020-03-17 08:05] VITALS: BP 116/68
[2020-03-17 08:13] LABS: CHOL/HDL RATIO 4.3 (4.2-7.3)
[2020-03-17] MEDS ORDERED: LOPERAMIDE HCL 2 MG CAPSULE PO PRN (08:30)
[2020-03-17] MEDS ORDERED: MAG HYDROX/AL HYDROX/SIMETH ES 30 ML SUSPENSION UDCUP PO PRN (08:30)
[2020-03-17] MEDS ORDERED: PROMETHAZINE HCL 25 MG TABLET PO PRN (08:30)
[2020-03-17] MEDS ORDERED: HydrOXYzine PAMOATE 50 MG CAPSULE PO PRN (08:30)
[2020-03-17] MEDS ORDERED: MAGNESIUM HYDROXIDE SUSPENSION 30 ML UDCUP PO PRN (08:30)
[2020-03-17] MEDS ORDERED: GuaiFENesin/D-METHORPHAN [SUGAR-FREE] 200-20MG/10 ML SYRUP UDCUP PO PRN (08:30)
[2020-03-17] MEDS: BuPROPion HCL XL 150 MG ER TABLET PO SCH (09:58)
[2020-03-17] MEDS: GABAPENTIN 300 MG CAPSULE PO SCH ×3 (09:58→16:25)
[2020-03-17] MEDS: LORazepam 2 MG TABLET PO PRN ×2 (09:58→16:25)
[2020-03-17] MEDS: GABAPENTIN 100 MG CAPSULE PO SCH ×3 (09:58→16:25)
[2020-03-17] MEDS: DULoxetine HCL 30 MG CAPSULE PO SCH (09:58)
[2020-03-17] MEDS: THIAMINE 100 MG TABLET PO SCH ×2 (10:29→16:25)
[2020-03-17] MEDS: ACAMPROSATE CALCIUM 333 MG DR TABLET PO SCH ×3 (10:29→16:25)
[2020-03-17] MEDS: FOLIC ACID 1 MG TABLET PO SCH (10:30)
[2020-03-17] MEDS: MULTIVITAMINS WITH MINERALS, THERAPEUTIC TABLET PO SCH (10:30)
[2020-03-17 16:11] VITALS: BP 117/74
[2020-03-17] MEDS: OLANZapine 10 MG RAPDIS TABLET PO SCH (20:31)
[2020-03-18 02:40] VITALS: BP 124/70
[2020-03-18 08:34] VITALS: BP 138/75
[2020-03-18] MEDS: GABAPENTIN 300 MG CAPSULE PO SCH ×3 (09:29→16:34)
[2020-03-18] MEDS: BuPROPion HCL XL 150 MG ER TABLET PO SCH (09:29)
[2020-03-18] MEDS: DULoxetine HCL 30 MG CAPSULE PO SCH (09:29)
[2020-03-18] MEDS: MULTIVITAMINS WITH MINERALS, THERAPEUTIC TABLET PO SCH (09:29)
[2020-03-18] MEDS: THIAMINE 100 MG TABLET PO SCH ×2 (09:29→16:34)
[2020-03-18] MEDS: GABAPENTIN 100 MG CAPSULE PO SCH ×3 (09:29→16:34)
[2020-03-18] MEDS: ACAMPROSATE CALCIUM 333 MG DR TABLET PO SCH ×3 (09:29→16:34)
[2020-03-18] MEDS: FOLIC ACID 1 MG TABLET PO SCH (09:30)
[2020-03-18] MEDS: ACETAMINOPHEN 325 MG TABLET PO PRN (09:38)
[2020-03-18 16:08] VITALS: BP 117/68
[2020-03-18] MEDS: OLANZapine 5 MG RAPDIS TABLET PO SCH (20:46)
[2020-03-19 03:56] VITALS: BP 124/75
[2020-03-19 04:33] VITALS: BP 130/90
[2020-03-19] MEDS: BuPROPion HCL XL 150 MG ER TABLET PO SCH (08:23)
[2020-03-19] MEDS: GABAPENTIN 300 MG CAPSULE PO SCH ×3 (08:23→16:34)
[2020-03-19] MEDS: ACAMPROSATE CALCIUM 333 MG DR TABLET PO SCH ×3 (08:23→16:34)
[2020-03-19] MEDS: THIAMINE 100 MG TABLET PO SCH ×2 (08:23→16:35)
[2020-03-19] MEDS: GABAPENTIN 100 MG CAPSULE PO SCH ×3 (08:23→16:35)
[2020-03-19] MEDS: DULoxetine HCL 30 MG CAPSULE PO SCH (08:24)
[2020-03-19] MEDS: LORazepam 2 MG TABLET PO PRN ×2 (08:24→16:35)
[2020-03-19] MEDS: MULTIVITAMINS WITH MINERALS, THERAPEUTIC TABLET PO SCH (08:24)
[2020-03-19] MEDS: FOLIC ACID 1 MG TABLET PO SCH (08:24)
[2020-03-19 09:00] VITALS: BP 114/69
[2020-03-19 16:15] VITALS: BP 136/89
[2020-03-19] MEDS: OLANZapine 5 MG RAPDIS TABLET PO SCH (20:24)
[2020-03-20 02:22] VITALS: BP 117/78
[2020-03-20 08:05] VITALS: BP 134/84
[2020-03-20] MEDS: BuPROPion HCL XL 150 MG ER TABLET PO SCH (08:08)
[2020-03-20] MEDS: GABAPENTIN 300 MG CAPSULE PO SCH ×3 (08:08→16:18)
[2020-03-20] MEDS: ACAMPROSATE CALCIUM 333 MG DR TABLET PO SCH ×3 (08:08→16:18)
[2020-03-20] MEDS: FOLIC ACID 1 MG TABLET PO SCH (08:08)
[2020-03-20] MEDS: THIAMINE 100 MG TABLET PO SCH ×2 (08:08→16:18)
[2020-03-20] MEDS: GABAPENTIN 100 MG CAPSULE PO SCH ×3 (08:08→16:18)
[2020-03-20] MEDS: DULoxetine HCL 30 MG CAPSULE PO SCH (08:08)
[2020-03-20] MEDS: MULTIVITAMINS WITH MINERALS, THERAPEUTIC TABLET PO SCH (08:09)
[2020-03-20] MEDS: LORazepam 2 MG TABLET PO PRN (10:35)
[2020-03-20] MEDS: ZOLPIDEM TARTRATE 10 MG TABLET PO SCH (16:18)
[2020-03-20 16:31] VITALS: BP 132/83
[2020-03-20] MEDS: OLANZapine 5 MG RAPDIS TABLET PO SCH (20:55)
[2020-03-21 04:43] VITALS: BP 128/75
[2020-03-21 08:04] VITALS: BP 130/73
[2020-03-21] MEDS: GABAPENTIN 300 MG CAPSULE PO SCH ×3 (08:43→16:35)
[2020-03-21] MEDS: ACAMPROSATE CALCIUM 333 MG DR TABLET PO SCH ×3 (08:44→16:35)
[2020-03-21] MEDS: GABAPENTIN 100 MG CAPSULE PO SCH ×3 (08:44→16:35)
[2020-03-21] MEDS: BuPROPion HCL XL 150 MG ER TABLET PO SCH (08:44)
[2020-03-21] MEDS: FOLIC ACID 1 MG TABLET PO SCH (08:44)
[2020-03-21] MEDS: DULoxetine HCL 30 MG CAPSULE PO SCH (08:44)
[2020-03-21] MEDS: THIAMINE 100 MG TABLET PO SCH ×2 (08:44→16:35)
[2020-03-21] MEDS: MULTIVITAMINS WITH MINERALS, THERAPEUTIC TABLET PO SCH (08:45)
[2020-03-21] MEDS: LORazepam 2 MG TABLET PO PRN (13:31)
[2020-03-21 16:07] VITALS: BP 125/90
[2020-03-21] MEDS: ZOLPIDEM TARTRATE 10 MG TABLET PO SCH (19:27)
[2020-03-21] MEDS: OLANZapine 5 MG RAPDIS TABLET PO SCH (19:28)
[2020-03-22 02:31] VITALS: BP 140/88
[2020-03-22] MEDS: FOLIC ACID 1 MG TABLET PO SCH (08:02)
[2020-03-22] MEDS: THIAMINE 100 MG TABLET PO SCH ×2 (08:02→16:18)
[2020-03-22] MEDS: MULTIVITAMINS WITH MINERALS, THERAPEUTIC TABLET PO SCH (08:02)
[2020-03-22] MEDS: DULoxetine HCL 30 MG CAPSULE PO SCH (08:03)
[2020-03-22] MEDS: BuPROPion HCL XL 150 MG ER TABLET PO SCH (08:03)
[2020-03-22] MEDS: GABAPENTIN 100 MG CAPSULE PO SCH ×3 (08:03→16:18)
[2020-03-22] MEDS: NICOTINE 21 MG/24 HOUR PATCH TD SCH (08:03)
[2020-03-22] MEDS: GABAPENTIN 300 MG CAPSULE PO SCH ×3 (08:03→16:17)
[2020-03-22] MEDS: ACAMPROSATE CALCIUM 333 MG DR TABLET PO SCH ×3 (08:03→16:17)
[2020-03-22 08:28] VITALS: BP 142/86
[2020-03-22] MEDS: ACETAMINOPHEN 325 MG TABLET PO PRN (11:15)
[2020-03-22] MEDS: LORazepam 2 MG TABLET PO PRN (12:19)
[2020-03-22] MEDS: ZOLPIDEM TARTRATE 10 MG TABLET PO SCH (17:17)
[2020-03-22] MEDS: OLANZapine 5 MG RAPDIS TABLET PO SCH (17:18)
[2020-03-22 17:32] VITALS: BP_SYST 105; BP_SYST 139; BP_DIAS 59; BP_DIAS 75
[2020-03-23 00:18] VITALS: BP 129/70
[2020-03-23] MEDS: THIAMINE 100 MG TABLET PO SCH ×2 (08:27→16:40)
[2020-03-23] MEDS: GABAPENTIN 100 MG CAPSULE PO SCH ×3 (08:27→16:39)
[2020-03-23] MEDS: BuPROPion HCL XL 150 MG ER TABLET PO SCH (08:27)
[2020-03-23] MEDS: MULTIVITAMINS WITH MINERALS, THERAPEUTIC TABLET PO SCH (08:27)
[2020-03-23] MEDS: GABAPENTIN 300 MG CAPSULE PO SCH ×3 (08:27→16:40)
[2020-03-23] MEDS: FOLIC ACID 1 MG TABLET PO SCH (08:27)
[2020-03-23] MEDS: ACAMPROSATE CALCIUM 333 MG DR TABLET PO SCH ×3 (08:27→16:39)
[2020-03-23] MEDS: DULoxetine HCL 30 MG CAPSULE PO SCH (08:27)
[2020-03-23] MEDS: NICOTINE 21 MG/24 HOUR PATCH TD SCH (08:28)
[2020-03-23 08:30] VITALS: BP 110/72
[2020-03-23] MEDS: LORazepam 2 MG TABLET PO PRN ×2 (10:30→15:59)
[2020-03-23 16:20] VITALS: BP 131/84
[2020-03-23] MEDS: ZOLPIDEM TARTRATE 10 MG TABLET PO SCH (17:33)
[2020-03-23] MEDS: OLANZapine 5 MG RAPDIS TABLET PO SCH (17:34)
[2020-03-24 00:16] VITALS: BP 128/73
[2020-03-24] MEDS: GABAPENTIN 300 MG CAPSULE PO SCH ×3 (08:06→16:55)
[2020-03-24] MEDS: BuPROPion HCL XL 150 MG ER TABLET PO SCH (08:06)
[2020-03-24] MEDS: THIAMINE 100 MG TABLET PO SCH ×2 (08:06→16:56)
[2020-03-24] MEDS: ACAMPROSATE CALCIUM 333 MG DR TABLET PO SCH ×3 (08:06→16:55)
[2020-03-24] MEDS: GABAPENTIN 100 MG CAPSULE PO SCH ×3 (08:06→16:56)
[2020-03-24] MEDS: FOLIC ACID 1 MG TABLET PO SCH (08:06)
[2020-03-24 08:07] VITALS: BP 137/88
[2020-03-24] MEDS: ACETAMINOPHEN 325 MG TABLET PO PRN ×2 (08:07→14:22)
[2020-03-24] MEDS: MULTIVITAMINS WITH MINERALS, THERAPEUTIC TABLET PO SCH (08:07)
[2020-03-24] MEDS: DULoxetine HCL 30 MG CAPSULE PO SCH (08:07)
[2020-03-24] MEDS: NICOTINE 21 MG/24 HOUR PATCH TD SCH (08:07)
[2020-03-24 08:26] VITALS: BP 137/88
[2020-03-24] MEDS: LORazepam 2 MG TABLET PO PRN (14:07)
[2020-03-24 16:13] VITALS: BP 138/79
[2020-03-24] MEDS ORDERED: TraMADol HCL 50 MG TABLET PO ONE (16:30)
[2020-03-24] MEDS: ZOLPIDEM TARTRATE 10 MG TABLET PO SCH (17:38)
[2020-03-24] MEDS: OLANZapine 5 MG RAPDIS TABLET PO SCH (17:38)
[2020-03-24] MEDS: TraMADol HCL 50 MG TABLET PO SCH (21:00)
[2020-03-25 06:00] VITALS: BP 133/82
[2020-03-25] MEDS: ACETAMINOPHEN 325 MG TABLET PO PRN (06:16)
[2020-03-25] MEDS: LORazepam 2 MG TABLET PO PRN ×2 (06:16→13:41)
[2020-03-25 08:10] VITALS: BP 129/71
[2020-03-25] MEDS: BuPROPion HCL XL 150 MG ER TABLET PO SCH (08:47)
[2020-03-25] MEDS: GABAPENTIN 300 MG CAPSULE PO SCH ×3 (08:47→16:17)
[2020-03-25] MEDS: ACAMPROSATE CALCIUM 333 MG DR TABLET PO SCH ×3 (08:48→16:16)
[2020-03-25] MEDS: TraMADol HCL 50 MG TABLET PO SCH ×4 (08:48→21:00)
[2020-03-25] MEDS: FOLIC ACID 1 MG TABLET PO SCH (08:48)
[2020-03-25] MEDS: DULoxetine HCL 30 MG CAPSULE PO SCH (08:48)
[2020-03-25] MEDS: GABAPENTIN 100 MG CAPSULE PO SCH ×3 (08:48→16:17)
[2020-03-25] MEDS: MULTIVITAMINS WITH MINERALS, THERAPEUTIC TABLET PO SCH (08:48)
[2020-03-25] MEDS: THIAMINE 100 MG TABLET PO SCH ×2 (08:48→16:18)
[2020-03-25] MEDS: NICOTINE 21 MG/24 HOUR PATCH TD SCH (08:49)
[2020-03-25 16:09] VITALS: BP 124/87
[2020-03-25] MEDS: MIRTAZAPINE 15 MG TABLET PO SCH (17:35)
[2020-03-25] MEDS: OLANZapine 5 MG RAPDIS TABLET PO SCH (17:35)
[2020-03-25] MEDS: ZOLPIDEM TARTRATE 10 MG TABLET PO SCH (17:37)
[2020-03-25] MEDS ORDERED: MIRTAZAPINE 15 MG TABLET PO SCH (21:00)
[2020-03-26 01:06] VITALS: BP 143/87
[2020-03-26 06:37] VITALS: BP 144/90
[2020-03-26] MEDS: LORazepam 2 MG TABLET PO PRN ×2 (06:45→14:11)
[2020-03-26 08:22] VITALS: BP 134/90
[2020-03-26] MEDS: TraMADol HCL 50 MG TABLET PO SCH ×4 (08:28→21:00)
[2020-03-26] MEDS: FOLIC ACID 1 MG TABLET PO SCH (08:28)
[2020-03-26] MEDS: ACAMPROSATE CALCIUM 333 MG DR TABLET PO SCH ×3 (08:28→16:29)
[2020-03-26] MEDS: THIAMINE 100 MG TABLET PO SCH ×2 (08:28→16:28)
[2020-03-26] MEDS: MULTIVITAMINS WITH MINERALS, THERAPEUTIC TABLET PO SCH (08:29)
[2020-03-26] MEDS: NICOTINE 21 MG/24 HOUR PATCH TD SCH (08:29)
[2020-03-26] MEDS: GABAPENTIN 300 MG CAPSULE PO SCH ×3 (08:29→16:28)
[2020-03-26] MEDS: GABAPENTIN 100 MG CAPSULE PO SCH ×3 (08:29→16:28)
[2020-03-26] MEDS ORDERED: DULoxetine HCL 20 MG CAPSULE PO SCH (09:00)
[2020-03-26 16:26] VITALS: BP 116/66
[2020-03-26] MEDS: ZOLPIDEM TARTRATE 10 MG TABLET PO SCH (17:50)
[2020-03-26] MEDS: MIRTAZAPINE 15 MG TABLET PO SCH (17:51)
[2020-03-26 18:09] LABS: COVID AG,FIA SOURCE NASOPHARYNGEAL
[2020-03-27 05:21] VITALS: BP 143/96
[2020-03-27] MEDS: MULTIVITAMINS WITH MINERALS, THERAPEUTIC TABLET PO SCH (08:10)
[2020-03-27] MEDS: DULoxetine HCL 60 MG CAPSULE PO SCH (08:11)
[2020-03-27] MEDS: TraMADol HCL 50 MG TABLET PO SCH ×4 (08:11→20:42)
[2020-03-27] MEDS: ACAMPROSATE CALCIUM 333 MG DR TABLET PO SCH ×3 (08:11→16:19)
[2020-03-27] MEDS: GABAPENTIN 300 MG CAPSULE PO SCH ×2 (08:11→12:26)
[2020-03-27] MEDS: GABAPENTIN 100 MG CAPSULE PO SCH ×2 (08:11→12:26)
[2020-03-27] MEDS: NICOTINE 21 MG/24 HOUR PATCH TD SCH (08:13)
[2020-03-27 08:20] VITALS: BP 133/43
[2020-03-27] MEDS: LORazepam 2 MG TABLET PO PRN (13:46)
[2020-03-27 16:07] VITALS: BP 132/84
[2020-03-27] MEDS: OLANZapine 10 MG RAPDIS TABLET PO SCH (16:17)
[2020-03-27] MEDS: ZOLPIDEM TARTRATE 10 MG TABLET PO SCH (16:18)
[2020-03-27] MEDS: MIRTAZAPINE 15 MG TABLET PO SCH (16:19)
[2020-03-27] MEDS: GABAPENTIN 400 MG CAPSULE PO SCH (16:23)
[2020-03-28 03:57] VITALS: BP 141/93
[2020-03-28 06:45] VITALS: BP 144/87
[2020-03-28] MEDS: LORazepam 2 MG TABLET PO PRN ×2 (06:49→13:51)
[2020-03-28 08:03] VITALS: BP 137/75
[2020-03-28] MEDS: ACAMPROSATE CALCIUM 333 MG DR TABLET PO SCH ×3 (09:02→16:34)
[2020-03-28] MEDS: DULoxetine HCL 60 MG CAPSULE PO SCH (09:02)
[2020-03-28] MEDS: NICOTINE 21 MG/24 HOUR PATCH TD SCH (09:03)
[2020-03-28] MEDS: GABAPENTIN 400 MG CAPSULE PO SCH ×3 (09:03→16:34)
[2020-03-28] MEDS: MULTIVITAMINS WITH MINERALS, THERAPEUTIC TABLET PO SCH (09:03)
[2020-03-28] MEDS: TraMADol HCL 50 MG TABLET PO SCH ×4 (09:03→21:00)
[2020-03-28 16:25] VITALS: BP 130/80
[2020-03-28] MEDS: OLANZapine 10 MG RAPDIS TABLET PO SCH (17:36)
[2020-03-28] MEDS: ZOLPIDEM TARTRATE 10 MG TABLET PO SCH (17:36)
[2020-03-28] MEDS: MIRTAZAPINE 15 MG TABLET PO SCH (17:36)
[2020-03-29 04:25] VITALS: BP 131/87
[2020-03-29 08:08] VITALS: BP 141/83
[2020-03-29] MEDS: MULTIVITAMINS WITH MINERALS, THERAPEUTIC TABLET PO SCH (08:13)
[2020-03-29] MEDS: TraMADol HCL 50 MG TABLET PO SCH ×4 (08:13→20:11)
[2020-03-29] MEDS: DULoxetine HCL 60 MG CAPSULE PO SCH (08:13)
[2020-03-29] MEDS: ACAMPROSATE CALCIUM 333 MG DR TABLET PO SCH ×3 (08:14→16:03)
[2020-03-29] MEDS: GABAPENTIN 400 MG CAPSULE PO SCH ×3 (08:14→16:04)
[2020-03-29] MEDS: NICOTINE 21 MG/24 HOUR PATCH TD SCH (08:14)
[2020-03-29] MEDS: LORazepam 2 MG TABLET PO PRN (11:11)
[2020-03-29 16:05] VITALS: BP 136/79
[2020-03-29] MEDS: ZOLPIDEM TARTRATE 10 MG TABLET PO SCH (17:35)
[2020-03-29] MEDS: OLANZapine 10 MG RAPDIS TABLET PO SCH (17:35)
[2020-03-29] MEDS: MIRTAZAPINE 15 MG TABLET PO SCH (17:36)
[2020-03-29] MEDS ORDERED: HydrOXYzine PAMOATE 25 MG CAPSULE PO PRN (19:00)
[2020-03-30] VITALS: BP 135/78
[2020-03-30 08:16] VITALS: BP 145/78
[2020-03-30] MEDS: TraMADol HCL 50 MG TABLET PO SCH ×4 (09:10→20:21)
[2020-03-30] MEDS: DULoxetine HCL 60 MG CAPSULE PO SCH (09:10)
[2020-03-30] MEDS: MULTIVITAMINS WITH MINERALS, THERAPEUTIC TABLET PO SCH (09:10)
[2020-03-30] MEDS: GABAPENTIN 400 MG CAPSULE PO SCH ×3 (09:10→16:20)
[2020-03-30] MEDS: ACAMPROSATE CALCIUM 333 MG DR TABLET PO SCH ×3 (09:10→16:20)
[2020-03-30] MEDS: NICOTINE 21 MG/24 HOUR PATCH TD SCH (09:12)
[2020-03-30 16:08] VITALS: BP 117/68
[2020-03-30] MEDS: MIRTAZAPINE 15 MG TABLET PO SCH (17:44)
[2020-03-30] MEDS: OLANZapine 10 MG RAPDIS TABLET PO SCH (17:44)
[2020-03-31 05:34] VITALS: BP 133/84
[2020-03-31 08:28] VITALS: BP 147/74
[2020-03-31] MEDS: DULoxetine HCL 60 MG CAPSULE PO SCH (08:43)
[2020-03-31] MEDS: ACAMPROSATE CALCIUM 333 MG DR TABLET PO SCH ×3 (08:43→16:39)
[2020-03-31] MEDS: GABAPENTIN 400 MG CAPSULE PO SCH ×3 (08:43→16:40)
[2020-03-31] MEDS: NICOTINE 21 MG/24 HOUR PATCH TD SCH (08:44)
[2020-03-31] MEDS: TraMADol HCL 50 MG TABLET PO SCH ×2 (08:44→12:49)
[2020-03-31] MEDS: MULTIVITAMINS WITH MINERALS, THERAPEUTIC TABLET PO SCH (08:44)
[2020-03-31 16:06] VITALS: BP 142/86
[2020-03-31] MEDS: OLANZapine 10 MG RAPDIS TABLET PO SCH (16:40)
[2020-03-31] MEDS: MIRTAZAPINE 15 MG TABLET PO SCH (16:40)
[2020-04-01 04:39] VITALS: BP 130/77
[2020-04-01] MEDS: NALTREXONE HCL 50 MG TABLET PO SCH (08:03)
[2020-04-01] MEDS: NICOTINE 21 MG/24 HOUR PATCH TD SCH (08:03)
[2020-04-01] MEDS: MULTIVITAMINS WITH MINERALS, THERAPEUTIC TABLET PO SCH (08:03)
[2020-04-01] MEDS: ACAMPROSATE CALCIUM 333 MG DR TABLET PO SCH ×3 (08:03→16:57)
[2020-04-01] MEDS: GABAPENTIN 400 MG CAPSULE PO SCH ×3 (08:03→16:57)
[2020-04-01] MEDS: BuPROPion HCL XL 150 MG ER TABLET PO SCH (08:03)
[2020-04-01] MEDS: DULoxetine HCL 60 MG CAPSULE PO SCH (08:03)
[2020-04-01 08:15] VITALS: BP 142/88
[2020-04-01 16:08] VITALS: BP 139/89
[2020-04-01] MEDS: OLANZapine 10 MG RAPDIS TABLET PO SCH (17:35)
[2020-04-01] MEDS: MIRTAZAPINE 15 MG TABLET PO SCH (17:35)
[2020-04-02 00:27] VITALS: BP 137/80
[2020-04-02 08:13] VITALS: BP 139/88
[2020-04-02] MEDS: DULoxetine HCL 60 MG CAPSULE PO SCH (08:17)
[2020-04-02] MEDS: NALTREXONE HCL 50 MG TABLET PO SCH (08:17)
[2020-04-02] MEDS: GABAPENTIN 400 MG CAPSULE PO SCH ×3 (08:17→16:12)
[2020-04-02] MEDS: BuPROPion HCL XL 150 MG ER TABLET PO SCH (08:17)
[2020-04-02] MEDS: ACAMPROSATE CALCIUM 333 MG DR TABLET PO SCH ×3 (08:17→16:12)
[2020-04-02] MEDS: MULTIVITAMINS WITH MINERALS, THERAPEUTIC TABLET PO SCH (08:17)
[2020-04-02] MEDS: NICOTINE 21 MG/24 HOUR PATCH TD SCH (08:17)
[2020-04-02 16:14] VITALS: BP 137/89
[2020-04-02] MEDS: OLANZapine 10 MG RAPDIS TABLET PO SCH (16:45)
[2020-04-02] MEDS: MIRTAZAPINE 15 MG TABLET PO SCH (16:45)
[2020-04-02] MEDS ORDERED: BUPR-47 PO (20:29)
[2020-04-02] MEDS ORDERED: DULO-8 PO (20:29)
[2020-04-02] MEDS ORDERED: OLAN10TA22 PO (20:29)
[2020-04-02] MEDS ORDERED: GABA-1201 PO (20:29)
[2020-04-02] MEDS ORDERED: NALT50TA PO (20:29)
[2020-04-02] MEDS ORDERED: MIRT-89 PO (20:29)
[2020-04-03 00:48] VITALS: BP 109/62
[2020-04-03] MEDS ORDERED: BuPROPion HCL XL 150 MG ER TABLET PO SCH (09:00)
== END 2020-04-03 07:20 | disposition home or self-care (01) | DRG 750 ==
LOC: EMS 01:46 → B2S 11:41 → B3A 13:10 → B2S 03-21 14:00
PROVIDERS: ADMIT Psychiatry & Neurology Psychiatry; ATTEND Psychiatry & Neurology Psychiatry
DX: F25.1 Schizoaffective disorder, depressive type (principal); Z91.19 Patient's noncompliance with other medical treatment and regimen; Z91.14 Patient's other noncompliance with medication regimen; Z59.0 Homelessness; F12.20 Cannabis dependence, uncomplicated; F11.20 Opioid dependence, uncomplicated; F17.210 Nicotine dependence, cigarettes, uncomplicated; E03.9 Hypothyroidism, unspecified; E87.6 Hypokalemia; Z91.5 Personal history of self-harm; R09.89 Other specified symptoms and signs involving the circulatory and respiratory systems; F41.9 Anxiety disorder, unspecified; F31.9 Bipolar disorder, unspecified; T50.902A Poisoning by unspecified drugs, medicaments and biological substances, intentional self-harm, initial encounter; Y92.89 Other specified places as the place of occurrence of the external cause; Z20.828 Contact with and (suspected) exposure to other viral communicable diseases
CPT/HCPCS: 87081; 87426; G0480

== ENCOUNTER 2020-06-19 08:28 | Inpatient (IN) | payer MEDICAID, OTHER ==
[~2020-06-19] VITALS: Ht 170.2 cm; Wt 97.6 kg
[~2020-06-19 08:28] MED LIST changes: +BUPR-49 PO; +DULO-8 PO; -DULO30CA96 PO; +GABA-1201 PO; -GABA-1216 PO; +MIRT-89 PO
[2020-06-19 09:12] LABS: BASOPHILS % (AUTO) 0.7 % (0.0-2.0); EOSINOPHILS % (AUTO) 3.3 % (1.0-6.0); HEMATOCRIT 38.2 % (41-53); HEMOGLOBIN 12.7 g/dL (13.5-17.5); LYMPHOCYTES # (AUTO) 1.1 K/uL (1.0-4.8); LYMPHOCYTES % (AUTO) 9.2 % (22.0-44.0); MEAN CORPUSCULAR HEMOGLOBIN 29.4 pg (26.0-34.0); MEAN CORPUSCULAR HGB CONC 33.3 G/dL (31.0-37.0); MEAN CORPUSCULAR VOLUME 88 fL (80-100); MONOCYTES # (AUTO) 0.8 K/uL (0.1-1.0); MONOCYTES % (AUTO) 6.5 % (2.0-9.0); NEUTROPHILS # (AUTO) 9.4 K/uL (1.8-7.7); NEUTROPHILS % (AUTO) 80.3 % (40.0-70.0); PLATELET COUNT (AUTO) 482 K/uL (150-450); RED BLOOD CELL COUNT(AUTO) 4.32 MIL/uL (4.50-5.90); RED CELL DISTRIBUTION WIDTH 14.1 % (11.5-14.5)
[2020-06-19 09:14] LABS: COVID AG,FIA SOURCE NASOPHARYNGEAL
[2020-06-19 09:22] LABS: ANION GAP 11 mmol/L (8-16); CALCIUM, TOTAL 8.9 mg/dL (8.8-10.5); CARBON DIOXIDE 27 mmol/L (22-29); CHLORIDE 100 mmol/L (98-107); CREATININE 0.93 mg/dL (0.60-1.30); GLOMERULAR FILTR. RATE CALC > 60 mL/min (>60); GLUCOSE,RANDOM 102 mg/dL (70-110); POTASSIUM 3.7 mmol/L (3.5-5.1); SODIUM SERUM 138 mmol/L (136-145); UREA NITROGEN, BLOOD 6 mg/dL (7-18)
[2020-06-19 09:24] LABS: AMPHET/METH SCREEN,URINE POSITIVE (NEGATIVE); BARBITURATE SCREEN, URINE NEGATIVE (NEGATIVE); BENZODIAZEPINES SCREEN,URINE NEGATIVE (NEGATIVE); CANNABINOID SCREEN,URINE POSITIVE (NEGATIVE); COCAINE SCREEN,URINE NEGATIVE (NEGATIVE); METHADONE SCREEN, URINE NEGATIVE (NEGATIVE); OPIATE SCREEN,URINE NEGATIVE (NEGATIVE)
[2020-06-19 09:28] LABS: PHENCYCLIDINE SCREEN,URINE NEGATIVE (NEGATIVE)
[2020-06-19 09:28] LABS: ACETAMINOPHEN < 2 mcg/mL (10-30); ALANINE AMINOTRANSFERASE 31 U/L (12-78); ALBUMIN 3.6 g/dL (3.4-5.0); ALKALINE PHOSPHATASE 92 U/L (46-116); ASPARTATE AMINOTRANSFERASE 14 U/L (15-37); BILIRUBIN,TOTAL 0.3 mg/dL (0.1-1.0); TOTAL PROTEIN, SERUM 7.4 g/dL (6.4-8.2)
[2020-06-19 09:29] LABS: SALICYLATE < 0.2 mg/dL (2.8-20.0)
[2020-06-19] MEDS ORDERED: ZOLPIDEM TARTRATE 10 MG TABLET PO PRN (10:15)
[2020-06-19 11:25] VITALS: BP 163/95
[2020-06-19] MEDS: LORazepam 2 MG TABLET PO PRN (12:42)
[2020-06-19] MEDS: HALOPERIDOL 5 MG TABLET PO PRN (12:42)
[2020-06-19 13:49] VITALS: BP 144/88
[2020-06-19] MEDS ORDERED: CloNIDine HCL 0.1 MG TABLET PO PRN (15:30)
[2020-06-19] MEDS ORDERED: LOPERAMIDE HCL 2 MG CAPSULE PO PRN (15:30)
[2020-06-19] MEDS ORDERED: NICOTINE 14 MG/24 HOUR PATCH TD PRN (15:30)
[2020-06-19] MEDS ORDERED: ALBUTEROL SULFATE HFA 90 MCG/PUFF 8 GM INHALER IH PRN (15:30)
[2020-06-19] MEDS ORDERED: GuaiFENesin/D-METHORPHAN [SUGAR-FREE] 200-20MG/10 ML SYRUP UDCUP PO PRN (15:30)
[2020-06-19] MEDS ORDERED: DOCUSATE SODIUM 100 MG CAPSULE PO PRN (15:30)
[2020-06-19] MEDS ORDERED: ONDANSETRON HCL 4 MG TABLET PO PRN (15:30)
[2020-06-19] MEDS ORDERED: MAGNESIUM HYDROXIDE SUSPENSION 30 ML UDCUP PO PRN (15:30)
[2020-06-19] MEDS ORDERED: PETROLATUM,WHITE 28 GM JELLY TP PRN (15:30)
[2020-06-19] MEDS ORDERED: MAG HYDROX/AL HYDROX/SIMETH ES 30 ML SUSPENSION UDCUP PO PRN (15:30)
[2020-06-19 16:21] VITALS: BP 128/82
[2020-06-20 01:06] VITALS: BP 164/99
[2020-06-20 06:13] LABS: CHOL/HDL RATIO 3.9 (4.2-7.3)
[2020-06-20 08:29] VITALS: BP 145/88
[2020-06-20] MEDS: LORazepam 2 MG TABLET PO PRN (10:14)
[2020-06-20] MEDS: HALOPERIDOL 5 MG TABLET PO PRN (10:14)
[2020-06-20 16:20] VITALS: BP 146/89
[2020-06-20] MEDS: IBUPROFEN 400 MG TABLET PO PRN (16:21)
[2020-06-20 16:40] VITALS: BP 156/94
[2020-06-20] MEDS: GABAPENTIN 400 MG CAPSULE PO SCH (16:40)
[2020-06-20] MEDS: MIRTAZAPINE 30 MG TABLET PO SCH (17:01)
[2020-06-20] MEDS: OLANZapine 10 MG RAPDIS TABLET PO SCH (18:00)
[2020-06-21 08:37] VITALS: BP 150/107
[2020-06-21] MEDS: GABAPENTIN 400 MG CAPSULE PO SCH ×3 (09:25→17:30)
[2020-06-21] MEDS: BuPROPion HCL XL 150 MG ER TABLET PO SCH (09:26)
[2020-06-21] MEDS: NALTREXONE HCL 50 MG TABLET PO SCH (09:26)
[2020-06-21] MEDS: LORazepam 2 MG TABLET PO PRN (09:26)
[2020-06-21] MEDS: DULoxetine HCL 60 MG CAPSULE PO SCH (09:27)
[2020-06-21] MEDS: HALOPERIDOL 5 MG TABLET PO PRN (09:28)
[2020-06-21 09:57] VITALS: BP 154/95
[2020-06-21 16:10] VITALS: BP 171/109
[2020-06-21 16:40] VITALS: BP 126/74
[2020-06-21] MEDS: OLANZapine 10 MG RAPDIS TABLET PO SCH (17:29)
[2020-06-21] MEDS: MIRTAZAPINE 30 MG TABLET PO SCH (17:30)
[2020-06-22 08:00] VITALS: BP 127/91
[2020-06-22] MEDS: GABAPENTIN 400 MG CAPSULE PO SCH ×3 (08:01→16:00)
[2020-06-22] MEDS: DULoxetine HCL 60 MG CAPSULE PO SCH (08:01)
[2020-06-22] MEDS: BuPROPion HCL XL 150 MG ER TABLET PO SCH (09:00)
[2020-06-22] MEDS: NALTREXONE HCL 50 MG TABLET PO SCH (09:00)
[2020-06-22 15:59] VITALS: BP 126/86
[2020-06-22] MEDS: IBUPROFEN 400 MG TABLET PO PRN (15:59)
[2020-06-22 16:47] VITALS: BP 143/76
[2020-06-22] MEDS: OLANZapine 10 MG RAPDIS TABLET PO SCH (18:38)
[2020-06-22] MEDS: MIRTAZAPINE 30 MG TABLET PO SCH (18:38)
[2020-06-23 00:50] VITALS: BP 122/94
[2020-06-23 08:05] VITALS: BP 143/92
[2020-06-23] MEDS: NALTREXONE HCL 50 MG TABLET PO SCH (09:00)
[2020-06-23] MEDS: BuPROPion HCL XL 150 MG ER TABLET PO SCH (09:33)
[2020-06-23] MEDS: GABAPENTIN 400 MG CAPSULE PO SCH ×3 (09:33→16:33)
[2020-06-23] MEDS: DULoxetine HCL 60 MG CAPSULE PO SCH (09:35)
[2020-06-23] MEDS: LORazepam 2 MG TABLET PO PRN (16:12)
[2020-06-23] MEDS: HALOPERIDOL 5 MG TABLET PO PRN (16:12)
[2020-06-23 17:17] VITALS: BP 141/78
[2020-06-23] MEDS: MIRTAZAPINE 30 MG TABLET PO SCH (17:32)
[2020-06-23] MEDS: OLANZapine 10 MG RAPDIS TABLET PO SCH (17:32)
[2020-06-24 02:25] VITALS: BP 138/69
[2020-06-24] MEDS: DULoxetine HCL 60 MG CAPSULE PO SCH (08:01)
[2020-06-24] MEDS: BuPROPion HCL XL 150 MG ER TABLET PO SCH (08:01)
[2020-06-24] MEDS: GABAPENTIN 400 MG CAPSULE PO SCH ×3 (08:01→17:21)
[2020-06-24] MEDS: NALTREXONE HCL 50 MG TABLET PO SCH (08:09)
[2020-06-24 08:29] VITALS: BP 132/75
[2020-06-24] MEDS: IBUPROFEN 400 MG TABLET PO PRN (09:29)
[2020-06-24] MEDS: LORazepam 2 MG TABLET PO PRN (15:08)
[2020-06-24] MEDS: OLANZapine 10 MG RAPDIS TABLET PO SCH (17:21)
[2020-06-24] MEDS: MIRTAZAPINE 30 MG TABLET PO SCH (17:21)
[2020-06-25] MEDS: BuPROPion HCL XL 150 MG ER TABLET PO SCH (08:18)
[2020-06-25] MEDS: DULoxetine HCL 60 MG CAPSULE PO SCH (08:18)
[2020-06-25] MEDS: NALTREXONE HCL 50 MG TABLET PO SCH (08:18)
[2020-06-25] MEDS: GABAPENTIN 400 MG CAPSULE PO SCH ×3 (08:18→16:26)
[2020-06-25 08:19] VITALS: BP 136/94
[2020-06-25] MEDS: IBUPROFEN 400 MG TABLET PO PRN (08:19)
[2020-06-25] MEDS: HALOPERIDOL 5 MG TABLET PO PRN (11:28)
[2020-06-25] MEDS: LORazepam 2 MG TABLET PO PRN (11:28)
[2020-06-25] MEDS: MIRTAZAPINE 30 MG TABLET PO SCH (18:21)
[2020-06-25] MEDS: OLANZapine 10 MG RAPDIS TABLET PO SCH (18:22)
[2020-06-25 22:44] LABS: COVID AG,FIA SOURCE NASAL SWAB
[2020-06-26 08:02] VITALS: BP 138/96
[2020-06-26] MEDS: NALTREXONE HCL 50 MG TABLET PO SCH (08:02)
[2020-06-26] MEDS: GABAPENTIN 400 MG CAPSULE PO SCH ×3 (08:02→16:43)
[2020-06-26] MEDS: DULoxetine HCL 60 MG CAPSULE PO SCH (08:02)
[2020-06-26] MEDS: IBUPROFEN 400 MG TABLET PO PRN ×2 (08:02→17:16)
[2020-06-26] MEDS: BuPROPion HCL XL 150 MG ER TABLET PO SCH (08:02)
[2020-06-26] MEDS: LORazepam 2 MG TABLET PO PRN ×2 (11:29→16:46)
[2020-06-26] MEDS: HALOPERIDOL 5 MG TABLET PO PRN ×2 (11:29→16:46)
[2020-06-26 16:00] VITALS: BP 129/68
[2020-06-26] MEDS: MIRTAZAPINE 30 MG TABLET PO SCH (16:43)
[2020-06-26] MEDS: OLANZapine 10 MG RAPDIS TABLET PO SCH (16:43)
[2020-06-26 17:15] VITALS: BP 132/87
[2020-06-26 22:15] LABS: GLUCOMETER DEV NAME(LOC) 3E.I 2; GLUCOSE,POINT OF CARE 91 MG/DL (70-110)
[2020-06-27] MEDS: IBUPROFEN 400 MG TABLET PO PRN ×2 (05:36→14:19)
[2020-06-27 08:09] VITALS: BP 140/92
[2020-06-27] MEDS: ACETAMINOPHEN 325 MG TABLET PO PRN (08:09)
[2020-06-27] MEDS: NALTREXONE HCL 50 MG TABLET PO SCH (08:10)
[2020-06-27] MEDS: BuPROPion HCL XL 150 MG ER TABLET PO SCH (08:10)
[2020-06-27] MEDS: DULoxetine HCL 60 MG CAPSULE PO SCH (08:10)
[2020-06-27] MEDS: GABAPENTIN 400 MG CAPSULE PO SCH ×3 (08:10→17:02)
[2020-06-27] MEDS: BENZOCAINE/MENTHOL LOZENGE PO PRN ×2 (13:11→22:59)
[2020-06-27 14:19] VITALS: BP 141/95
[2020-06-27] MEDS: LORazepam 2 MG TABLET PO PRN (14:19)
[2020-06-27] MEDS: HALOPERIDOL 5 MG TABLET PO PRN (14:19)
[2020-06-27 16:52] VITALS: BP 157/92
[2020-06-27] MEDS: OLANZapine 10 MG RAPDIS TABLET PO SCH (17:02)
[2020-06-27] MEDS: MIRTAZAPINE 30 MG TABLET PO SCH (17:02)
[2020-06-28] VITALS: BP 162/72
[2020-06-28] MEDS: IBUPROFEN 400 MG TABLET PO PRN ×3 (00:03→16:19)
[2020-06-28] MEDS: GABAPENTIN 400 MG CAPSULE PO SCH ×3 (07:53→16:14)
[2020-06-28] MEDS: BuPROPion HCL XL 150 MG ER TABLET PO SCH (07:53)
[2020-06-28] MEDS: NALTREXONE HCL 50 MG TABLET PO SCH (07:53)
[2020-06-28] MEDS: DULoxetine HCL 60 MG CAPSULE PO SCH (07:53)
[2020-06-28 08:05] VITALS: BP 136/91
[2020-06-28] MEDS ORDERED: AZITHROMYCIN 500 MG TABLET PO SCH (09:00)
[2020-06-28] MEDS: BENZOCAINE/MENTHOL LOZENGE PO PRN ×2 (09:14→16:13)
[2020-06-28] MEDS: LORazepam 2 MG TABLET PO PRN (09:26)
[2020-06-28] MEDS: HALOPERIDOL 5 MG TABLET PO PRN (09:26)
[2020-06-28 09:27] LABS: BASOPHILS % (AUTO) 0.5 % (0.0-2.0); EOSINOPHILS % (AUTO) 1.8 % (1.0-6.0); HEMATOCRIT 42.4 % (41-53); LYMPHOCYTES # (AUTO) 1.6 K/uL (1.0-4.8); LYMPHOCYTES % (AUTO) 10.5 % (22.0-44.0); MEAN CORPUSCULAR VOLUME 91 fL (80-100); MONOCYTES % (AUTO) 6.3 % (2.0-9.0); NEUTROPHILS # (AUTO) 12.6 K/uL (1.8-7.7); NEUTROPHILS % (AUTO) 80.9 % (40.0-70.0); PLATELET COUNT (AUTO) 437 K/uL (150-450); RED BLOOD CELL COUNT(AUTO) 4.65 MIL/uL (4.50-5.90); RED CELL DISTRIBUTION WIDTH 14.7 % (11.5-14.5)
[2020-06-28 10:55] LABS: COVID AG,FIA SOURCE NASOPHARYNGEAL
[2020-06-28] MEDS: CEPHALEXIN MONOHYDRATE 500 MG CAPSULE PO SCH ×2 (13:14→16:14)
[2020-06-28 15:38] LABS: APPEARANCE,URINE CLEAR (CLEAR); BILIRUBIN,URINE NEGATIVE (NEGATIVE); GLUCOSE, URINE (UA) NEGATIVE (NEGATIVE); KETONES,URINE NEGATIVE (NEGATIVE); LEUKOCYTE ESTERASE ,URINE NEGATIVE (NEGATIVE); NITRATE,URINE NEGATIVE (NEGATIVE); OCCULT BLOOD,URINE NEGATIVE (NEGATIVE); PROTEIN,URINE NEGATIVE (NEGATIVE); UROBILINOGEN,URINE 0.2 mg/dL (<=1.0)
[2020-06-28 16:09] VITALS: BP 145/91
[2020-06-28 16:15] VITALS: BP 145/91
[2020-06-28] MEDS: OLANZapine 10 MG RAPDIS TABLET PO SCH (17:33)
[2020-06-28] MEDS: MIRTAZAPINE 30 MG TABLET PO SCH (17:33)
[2020-06-28] MEDS: ACETAMINOPHEN 325 MG TABLET PO PRN (17:33)
[2020-06-29] MEDS: IBUPROFEN 600 MG TABLET PO PRN ×3 (01:21→16:20)
[2020-06-29] MEDS: BENZOCAINE/MENTHOL LOZENGE PO PRN ×3 (01:21→18:21)
[2020-06-29] MEDS: HALOPERIDOL 5 MG TABLET PO PRN ×3 (01:26→16:42)
[2020-06-29] MEDS: LORazepam 2 MG TABLET PO PRN ×3 (01:26→16:42)
[2020-06-29 01:46] VITALS: BP 140/110
[2020-06-29] MEDS: DULoxetine HCL 60 MG CAPSULE PO SCH (07:57)
[2020-06-29] MEDS: BuPROPion HCL XL 150 MG ER TABLET PO SCH (07:57)
[2020-06-29] MEDS: PENICILLIN V POTASSIUM 500 MG TABLET PO SCH ×3 (07:57→16:19)
[2020-06-29] MEDS: GABAPENTIN 400 MG CAPSULE PO SCH ×3 (07:57→16:19)
[2020-06-29] MEDS: NALTREXONE HCL 50 MG TABLET PO SCH (07:57)
[2020-06-29 08:57] VITALS: BP 150/87
[2020-06-29 16:18] VITALS: BP 131/83
[2020-06-29] MEDS: MIRTAZAPINE 30 MG TABLET PO SCH (17:05)
[2020-06-29] MEDS: OLANZapine 10 MG RAPDIS TABLET PO SCH (17:05)
[2020-06-30] MEDS: BENZOCAINE/MENTHOL LOZENGE PO PRN (04:31)
[2020-06-30] MEDS: IBUPROFEN 600 MG TABLET PO PRN (04:31)
[2020-06-30 04:51] VITALS: BP 156/100
[2020-06-30] MEDS: DULoxetine HCL 60 MG CAPSULE PO SCH (08:10)
[2020-06-30] MEDS: BuPROPion HCL XL 150 MG ER TABLET PO SCH (08:10)
[2020-06-30] MEDS: NALTREXONE HCL 50 MG TABLET PO SCH (08:10)
[2020-06-30] MEDS: PENICILLIN V POTASSIUM 500 MG TABLET PO SCH ×3 (08:10→16:21)
[2020-06-30] MEDS: GABAPENTIN 400 MG CAPSULE PO SCH ×3 (08:10→16:21)
[2020-06-30] MEDS: METOPROLOL TARTRATE 25 MG TABLET PO SCH (08:10)
[2020-06-30 08:11] VITALS: BP 135/91
[2020-06-30] MEDS: ACETAMINOPHEN 325 MG TABLET PO PRN ×2 (08:11→16:21)
[2020-06-30] MEDS: LORazepam 2 MG TABLET PO PRN ×2 (10:50→16:21)
[2020-06-30] MEDS: HALOPERIDOL 5 MG TABLET PO PRN ×2 (10:50→18:11)
[2020-06-30 16:20] VITALS: BP 139/88
[2020-06-30] MEDS: MIRTAZAPINE 30 MG TABLET PO SCH (18:11)
[2020-06-30] MEDS: OLANZapine 10 MG RAPDIS TABLET PO SCH (18:11)
[2020-07-01] MEDS: IBUPROFEN 600 MG TABLET PO PRN (06:15)
[2020-07-01 08:00] VITALS: BP 128/84
[2020-07-01] MEDS: DULoxetine HCL 60 MG CAPSULE PO SCH (08:00)
[2020-07-01] MEDS: GABAPENTIN 400 MG CAPSULE PO SCH (08:00)
[2020-07-01] MEDS: NALTREXONE HCL 50 MG TABLET PO SCH (08:01)
[2020-07-01] MEDS: PENICILLIN V POTASSIUM 500 MG TABLET PO SCH (08:01)
[2020-07-01] MEDS: ACETAMINOPHEN 325 MG TABLET PO PRN (08:01)
[2020-07-01] MEDS: METOPROLOL TARTRATE 25 MG TABLET PO SCH (08:02)
[2020-07-01] MEDS: BuPROPion HCL XL 150 MG ER TABLET PO SCH (08:02)
[2020-07-01 09:00] VITALS: BP 132/77
[2020-07-01] MEDS: HALOPERIDOL 5 MG TABLET PO PRN (10:08)
[2020-07-01] MEDS: LORazepam 2 MG TABLET PO PRN (10:08)
[2020-07-01] MEDS ORDERED: METO25 PO (11:49)
[2020-07-01] MEDS ORDERED: PENI500T2 PO (11:50)
== END 2020-07-01 13:10 | disposition designated cancer center or children's hospital (05) | DRG 750 ==
LOC: EMS 08:33 → 3EI 10:29
PROVIDERS: ADMIT Psychiatry & Neurology Child & Adolescent Psychiatry; ATTEND Psychiatry & Neurology Child & Adolescent Psychiatry
DX: F25.1 Schizoaffective disorder, depressive type (principal); Z20.822 Contact with and (suspected) exposure to COVID-19; D64.9 Anemia, unspecified; F15.10 Other stimulant abuse, uncomplicated; E03.9 Hypothyroidism, unspecified; F31.9 Bipolar disorder, unspecified; J02.0 Streptococcal pharyngitis; R45.850 Homicidal ideations; D72.829 Elevated white blood cell count, unspecified; R45.851 Suicidal ideations; F99 Mental disorder, not otherwise specified; F41.9 Anxiety disorder, unspecified; F12.10 Cannabis abuse, uncomplicated; R03.0 Elevated blood-pressure reading, without diagnosis of hypertension; Z59.0 Homelessness; Z63.8 Other specified problems related to primary support group; Z79.899 Other long term (current) drug therapy
CPT/HCPCS: 87426; 87430; 99285; A9575; G0480; G0481; 36415-L1; 36415-TC; 71046; 71046-TC; 80061-TC; 81003-TC

== ENCOUNTER 2020-07-15 14:10 | Inpatient (IN) | payer MEDICAID, OTHER ==
[~2020-07-15] VITALS: Ht 175.3 cm; Wt 97.4 kg
[~2020-07-15 14:10] MED LIST changes: +METO25 PO; +PENI500T2 PO
[2020-07-15] MEDS ORDERED: HALOPERIDOL LACTATE 5 MG/ML VIAL IM ONE (16:15)
[2020-07-15] MEDS ORDERED: LORazepam 2 MG/ML VIAL IM ONE (16:15)
[2020-07-15 16:27] LABS: BASOPHILS % (AUTO) 0.7 % (0.0-2.0); EOSINOPHILS % (AUTO) 4.2 % (1.0-6.0); HEMATOCRIT 43.3 % (41-53); HEMOGLOBIN 14.4 g/dL (13.5-17.5); LYMPHOCYTES # (AUTO) 1.9 K/uL (1.0-4.8); MEAN CORPUSCULAR HEMOGLOBIN 29.9 pg (26.0-34.0); MEAN CORPUSCULAR HGB CONC 33.2 G/dL (31.0-37.0); MEAN CORPUSCULAR VOLUME 90 fL (80-100); MONOCYTES # (AUTO) 0.5 K/uL (0.1-1.0); NEUTROPHILS # (AUTO) 3.2 K/uL (1.8-7.7); NEUTROPHILS % (AUTO) 54.1 % (40.0-70.0); PLATELET COUNT (AUTO) 398 K/uL (150-450); RED BLOOD CELL COUNT(AUTO) 4.81 MIL/uL (4.50-5.90); RED CELL DISTRIBUTION WIDTH 15.7 % (11.5-14.5)
[2020-07-15 16:30] LABS: COVID AG,FIA SOURCE NASOPHARYNGEAL
[2020-07-15 16:42] LABS: ANION GAP 9 mmol/L (8-16); CALCIUM, TOTAL 9.2 mg/dL (8.8-10.5); CARBON DIOXIDE 30 mmol/L (22-29); CHLORIDE 101 mmol/L (98-107); CREATININE 0.96 mg/dL (0.60-1.30); GLOMERULAR FILTR. RATE CALC > 60 mL/min (>60); GLUCOSE,RANDOM 95 mg/dL (70-110); POTASSIUM 3.8 mmol/L (3.5-5.1); SODIUM SERUM 140 mmol/L (136-145); UREA NITROGEN, BLOOD 8 mg/dL (7-18)
[2020-07-15 16:47] LABS: ALANINE AMINOTRANSFERASE 24 U/L (12-78); ALBUMIN 3.8 g/dL (3.4-5.0); ALKALINE PHOSPHATASE 103 U/L (46-116); ASPARTATE AMINOTRANSFERASE 14 U/L (15-37); BILIRUBIN,TOTAL 0.4 mg/dL (0.1-1.0)
[2020-07-15 16:50] LABS: AMPHET/METH SCREEN,URINE POSITIVE (NEGATIVE); BARBITURATE SCREEN, URINE NEGATIVE (NEGATIVE); BENZODIAZEPINES SCREEN,URINE NEGATIVE (NEGATIVE); CANNABINOID SCREEN,URINE POSITIVE (NEGATIVE); COCAINE SCREEN,URINE NEGATIVE (NEGATIVE); METHADONE SCREEN, URINE NEGATIVE (NEGATIVE); OPIATE SCREEN,URINE NEGATIVE (NEGATIVE)
[2020-07-15 16:53] LABS: PHENCYCLIDINE SCREEN,URINE NEGATIVE (NEGATIVE)
[2020-07-15 20:19] VITALS: BP 144/86
[2020-07-15] MEDS ORDERED: ACETAMINOPHEN 325 MG TABLET PO PRN (21:15)
[2020-07-15] MEDS: OLANZapine 10 MG RAPDIS TABLET PO SCH (22:15)
[2020-07-15] MEDS: GABAPENTIN 400 MG CAPSULE PO SCH (22:15)
[2020-07-15] MEDS: MIRTAZAPINE 15 MG TABLET PO SCH (22:16)
[2020-07-16] MEDS ORDERED: INFLUENZA VIRUS VACCINE QVS 2020-21 (6MO+)/PF 60 MCG/0.5 ML SYRINGE IM ONE (06:00)
[2020-07-16 08:06] VITALS: BP 119/77
[2020-07-16] MEDS: BuPROPion HCL XL 150 MG ER TABLET PO SCH (08:13)
[2020-07-16] MEDS: METOPROLOL TARTRATE 25 MG TABLET PO SCH (08:13)
[2020-07-16] MEDS: GABAPENTIN 400 MG CAPSULE PO SCH ×3 (08:14→16:26)
[2020-07-16] MEDS: NICOTINE 21 MG/24 HOUR PATCH TD SCH (08:14)
[2020-07-16] MEDS: LORazepam 2 MG TABLET PO PRN (08:15)
[2020-07-16 16:17] VITALS: BP 112/82
[2020-07-16] MEDS: OLANZapine 10 MG RAPDIS TABLET PO SCH (16:26)
[2020-07-16] MEDS: MIRTAZAPINE 15 MG TABLET PO SCH (20:07)
[2020-07-17 00:33] VITALS: BP 140/90
[2020-07-17 08:19] VITALS: BP 120/79
[2020-07-17] MEDS: BuPROPion HCL XL 150 MG ER TABLET PO SCH (08:33)
[2020-07-17] MEDS: NICOTINE 21 MG/24 HOUR PATCH TD SCH (08:33)
[2020-07-17] MEDS: GABAPENTIN 400 MG CAPSULE PO SCH ×3 (08:33→16:01)
[2020-07-17] MEDS: METOPROLOL TARTRATE 25 MG TABLET PO SCH (08:33)
[2020-07-17] MEDS: OLANZapine 5 MG RAPDIS TABLET PO PRN (08:34)
[2020-07-17] MEDS: LORazepam 2 MG TABLET PO PRN (15:50)
[2020-07-17 16:04] VITALS: BP 137/84
[2020-07-17] MEDS: OLANZapine 10 MG RAPDIS TABLET PO SCH (17:11)
[2020-07-17] MEDS: MIRTAZAPINE 15 MG TABLET PO SCH (20:27)
[2020-07-17] MEDS: ZOLPIDEM TARTRATE 10 MG TABLET PO PRN (20:27)
[2020-07-18] VITALS (7 sets, daily range): BP systolic 116–130; BP diastolic 62–81
[2020-07-18] MEDS: GABAPENTIN 400 MG CAPSULE PO SCH ×3 (08:19→16:03)
[2020-07-18] MEDS: NICOTINE 21 MG/24 HOUR PATCH TD SCH (08:19)
[2020-07-18] MEDS: METOPROLOL TARTRATE 25 MG TABLET PO SCH (08:19)
[2020-07-18] MEDS: BuPROPion HCL XL 150 MG ER TABLET PO SCH (08:19)
[2020-07-18] MEDS: LORazepam 2 MG TABLET PO PRN ×2 (09:01→16:02)
[2020-07-18] MEDS: OLANZapine 5 MG RAPDIS TABLET PO PRN (09:34)
[2020-07-18] MEDS ORDERED: PROMETHAZINE HCL 25 MG TABLET PO PRN (14:45)
[2020-07-18] MEDS ORDERED: MAG HYDROX/AL HYDROX/SIMETH ES 30 ML SUSPENSION UDCUP PO PRN ×2 (14:45)
[2020-07-18] MEDS ORDERED: IBUPROFEN 600 MG TABLET PO PRN (14:45)
[2020-07-18] MEDS ORDERED: CloNIDine HCL 0.1 MG TABLET PO PRN (14:45)
[2020-07-18] MEDS ORDERED: HydrOXYzine PAMOATE 50 MG CAPSULE PO PRN (14:45)
[2020-07-18] MEDS ORDERED: MAGNESIUM HYDROXIDE SUSPENSION 30 ML UDCUP PO PRN (14:45)
[2020-07-18] MEDS ORDERED: ACETAMINOPHEN 325 MG TABLET PO PRN (14:45)
[2020-07-18] MEDS ORDERED: LOPERAMIDE HCL 2 MG CAPSULE PO PRN (14:45)
[2020-07-18] MEDS ORDERED: GuaiFENesin/D-METHORPHAN [SUGAR-FREE] 200-20MG/10 ML SYRUP UDCUP PO PRN (14:45)
[2020-07-18] MEDS: THIAMINE 100 MG TABLET PO SCH (16:02)
[2020-07-18] MEDS: OLANZapine 10 MG RAPDIS TABLET PO SCH (16:02)
[2020-07-18] MEDS: CloNIDine HCL 0.1 MG TABLET PO SCH ×2 (16:03→20:24)
[2020-07-18] MEDS: MIRTAZAPINE 15 MG TABLET PO SCH (20:24)
[2020-07-18] MEDS: MELATONIN 5 MG TABLET PO SCH (20:24)
[2020-07-19] VITALS (7 sets, daily range): BP systolic 112–119; BP diastolic 64–89
[2020-07-19] MEDS: CloNIDine HCL 0.1 MG TABLET PO SCH ×4 (06:00→21:37)
[2020-07-19] MEDS: OMEGA-3/DHA/EPA/FISH OIL 1,000 MG CAPSULE PO SCH (08:24)
[2020-07-19] MEDS: NICOTINE 21 MG/24 HOUR PATCH TD SCH (08:24)
[2020-07-19] MEDS: METOPROLOL TARTRATE 25 MG TABLET PO SCH (08:25)
[2020-07-19] MEDS: MULTIVITAMINS WITH MINERALS, THERAPEUTIC TABLET PO SCH (08:25)
[2020-07-19] MEDS: GABAPENTIN 400 MG CAPSULE PO SCH ×3 (08:25→17:05)
[2020-07-19] MEDS: FOLIC ACID 1 MG TABLET PO SCH (08:25)
[2020-07-19] MEDS: THIAMINE 100 MG TABLET PO SCH ×2 (08:25→17:05)
[2020-07-19] MEDS: BuPROPion HCL XL 150 MG ER TABLET PO SCH (09:17)
[2020-07-19] MEDS: LORazepam 2 MG TABLET PO PRN ×2 (10:06→17:05)
[2020-07-19] MEDS: HydrOXYzine PAMOATE 50 MG CAPSULE PO PRN (10:13)
[2020-07-19] MEDS: OLANZapine 5 MG RAPDIS TABLET PO PRN (10:14)
[2020-07-19] MEDS: OLANZapine 10 MG RAPDIS TABLET PO SCH (17:05)
[2020-07-19] MEDS: MELATONIN 5 MG TABLET PO SCH (21:00)
[2020-07-19] MEDS: MIRTAZAPINE 15 MG TABLET PO SCH (21:36)
[2020-07-19] MEDS: ZOLPIDEM TARTRATE 10 MG TABLET PO PRN (21:37)
[2020-07-20] VITALS (7 sets, daily range): BP systolic 103–122; BP diastolic 60–69
[2020-07-20] MEDS: CloNIDine HCL 0.1 MG TABLET PO SCH ×4 (06:03→21:04)
[2020-07-20] MEDS: THIAMINE 100 MG TABLET PO SCH ×2 (09:02→16:03)
[2020-07-20] MEDS: OMEGA-3/DHA/EPA/FISH OIL 1,000 MG CAPSULE PO SCH (09:02)
[2020-07-20] MEDS: FOLIC ACID 1 MG TABLET PO SCH (09:02)
[2020-07-20] MEDS: GABAPENTIN 400 MG CAPSULE PO SCH ×3 (09:03→16:03)
[2020-07-20] MEDS: MULTIVITAMINS WITH MINERALS, THERAPEUTIC TABLET PO SCH (09:03)
[2020-07-20] MEDS: BuPROPion HCL XL 150 MG ER TABLET PO SCH (09:03)
[2020-07-20] MEDS: METOPROLOL TARTRATE 25 MG TABLET PO SCH (09:03)
[2020-07-20] MEDS: NICOTINE 21 MG/24 HOUR PATCH TD SCH (09:04)
[2020-07-20] MEDS: IBUPROFEN 600 MG TABLET PO PRN (12:08)
[2020-07-20] MEDS: LORazepam 2 MG TABLET PO PRN (14:48)
[2020-07-20] MEDS: OLANZapine 10 MG RAPDIS TABLET PO SCH (17:01)
[2020-07-20] MEDS: MELATONIN 5 MG TABLET PO SCH (20:34)
[2020-07-20] MEDS: MIRTAZAPINE 15 MG TABLET PO SCH (20:34)
[2020-07-21] VITALS (7 sets, daily range): BP systolic 112–134; BP diastolic 62–80
[2020-07-21] MEDS: CloNIDine HCL 0.1 MG TABLET PO SCH ×4 (06:25→20:03)
[2020-07-21] MEDS: OMEGA-3/DHA/EPA/FISH OIL 1,000 MG CAPSULE PO SCH (08:49)
[2020-07-21] MEDS: FOLIC ACID 1 MG TABLET PO SCH (08:50)
[2020-07-21] MEDS: GABAPENTIN 400 MG CAPSULE PO SCH ×3 (08:50→16:48)
[2020-07-21] MEDS: THIAMINE 100 MG TABLET PO SCH ×2 (08:50→16:49)
[2020-07-21] MEDS: MULTIVITAMINS WITH MINERALS, THERAPEUTIC TABLET PO SCH (08:50)
[2020-07-21] MEDS: METOPROLOL TARTRATE 25 MG TABLET PO SCH (08:51)
[2020-07-21] MEDS: NICOTINE 21 MG/24 HOUR PATCH TD SCH (08:54)
[2020-07-21] MEDS ORDERED: BuPROPion HCL XL 150 MG ER TABLET PO SCH (09:00)
[2020-07-21] MEDS: IBUPROFEN 600 MG TABLET PO PRN (11:01)
[2020-07-21] MEDS: LORazepam 2 MG TABLET PO PRN ×2 (11:33→18:49)
[2020-07-21] MEDS: OLANZapine 10 MG RAPDIS TABLET PO SCH (16:49)
[2020-07-21] MEDS: ZOLPIDEM TARTRATE 10 MG TABLET PO PRN (20:03)
[2020-07-21] MEDS: MIRTAZAPINE 15 MG TABLET PO SCH (20:03)
[2020-07-21] MEDS: MELATONIN 5 MG TABLET PO SCH (20:03)
[2020-07-21] MEDS: OLANZapine 5 MG RAPDIS TABLET PO SCH (21:09)
[2020-07-22 06:01] VITALS: BP 120/67
[2020-07-22] MEDS: CloNIDine HCL 0.1 MG TABLET PO SCH ×4 (06:03→20:16)
[2020-07-22 08:05] VITALS: BP 117/69
[2020-07-22] MEDS: MULTIVITAMINS WITH MINERALS, THERAPEUTIC TABLET PO SCH (08:05)
[2020-07-22] MEDS: THIAMINE 100 MG TABLET PO SCH ×2 (08:05→16:12)
[2020-07-22] MEDS: BuPROPion HCL XL 150 MG ER TABLET PO SCH (08:05)
[2020-07-22] MEDS: OMEGA-3/DHA/EPA/FISH OIL 1,000 MG CAPSULE PO SCH (08:05)
[2020-07-22] MEDS: FOLIC ACID 1 MG TABLET PO SCH (08:05)
[2020-07-22] MEDS: GABAPENTIN 400 MG CAPSULE PO SCH ×3 (08:05→16:12)
[2020-07-22] MEDS: METOPROLOL TARTRATE 25 MG TABLET PO SCH (08:06)
[2020-07-22] MEDS: NICOTINE 21 MG/24 HOUR PATCH TD SCH (08:12)
[2020-07-22] MEDS: LORazepam 2 MG TABLET PO PRN ×2 (10:37→17:41)
[2020-07-22 12:01] VITALS: BP 112/61
[2020-07-22 14:53] VITALS: BP 124/75
[2020-07-22] MEDS: HydrOXYzine PAMOATE 50 MG CAPSULE PO PRN (14:53)
[2020-07-22] MEDS: IBUPROFEN 600 MG TABLET PO PRN (14:54)
[2020-07-22 16:08] VITALS: BP 109/72
[2020-07-22 16:10] VITALS: BP 109/72
[2020-07-22] MEDS: MELATONIN 5 MG TABLET PO SCH (20:16)
[2020-07-22] MEDS: MIRTAZAPINE 15 MG TABLET PO SCH (20:16)
[2020-07-22] MEDS: OLANZapine 5 MG RAPDIS TABLET PO SCH (20:17)
[2020-07-23 01:03] VITALS: BP 137/89
[2020-07-23] MEDS: CloNIDine HCL 0.1 MG TABLET PO SCH ×4 (06:30→22:00)
[2020-07-23] MEDS: THIAMINE 100 MG TABLET PO SCH ×2 (08:18→16:30)
[2020-07-23] MEDS: METOPROLOL TARTRATE 25 MG TABLET PO SCH (08:18)
[2020-07-23] MEDS: FOLIC ACID 1 MG TABLET PO SCH (08:18)
[2020-07-23] MEDS: GABAPENTIN 400 MG CAPSULE PO SCH ×3 (08:18→16:30)
[2020-07-23] MEDS: OMEGA-3/DHA/EPA/FISH OIL 1,000 MG CAPSULE PO SCH (08:18)
[2020-07-23] MEDS: MULTIVITAMINS WITH MINERALS, THERAPEUTIC TABLET PO SCH (08:18)
[2020-07-23] MEDS: BuPROPion HCL XL 150 MG ER TABLET PO SCH (08:18)
[2020-07-23] MEDS: NICOTINE 21 MG/24 HOUR PATCH TD SCH (08:19)
[2020-07-23 08:29] VITALS: BP 111/62
[2020-07-23] MEDS: IBUPROFEN 600 MG TABLET PO PRN (09:44)
[2020-07-23 11:24] VITALS: BP 131/71
[2020-07-23] MEDS: LORazepam 2 MG TABLET PO PRN (13:09)
[2020-07-23] MEDS: HydrOXYzine PAMOATE 50 MG CAPSULE PO PRN (14:05)
[2020-07-23 16:24] VITALS: BP 112/68
[2020-07-23] MEDS: OLANZapine 5 MG RAPDIS TABLET PO PRN (16:30)
[2020-07-23] MEDS: MELATONIN 5 MG TABLET PO SCH (19:38)
[2020-07-23] MEDS: MIRTAZAPINE 15 MG TABLET PO SCH (19:39)
[2020-07-23] MEDS: OLANZapine 10 MG RAPDIS TABLET PO SCH (19:41)
[2020-07-23] MEDS ORDERED: MIRTAZAPINE 15 MG TABLET PO SCH (21:00)
[2020-07-23] MEDS ORDERED: OLANZapine 10 MG RAPDIS TABLET PO SCH (21:00)
[2020-07-24] MEDS: MULTIVITAMINS WITH MINERALS, THERAPEUTIC TABLET PO SCH (05:51)
[2020-07-24] MEDS: BuPROPion HCL XL 150 MG ER TABLET PO SCH (05:51)
[2020-07-24] MEDS: CloNIDine HCL 0.1 MG TABLET PO SCH ×4 (05:51→22:00)
[2020-07-24] MEDS: THIAMINE 100 MG TABLET PO SCH ×2 (05:52→17:04)
[2020-07-24] MEDS: FOLIC ACID 1 MG TABLET PO SCH (05:52)
[2020-07-24] MEDS: OMEGA-3/DHA/EPA/FISH OIL 1,000 MG CAPSULE PO SCH (05:52)
[2020-07-24] MEDS: METOPROLOL TARTRATE 25 MG TABLET PO SCH (05:52)
[2020-07-24] MEDS: GABAPENTIN 400 MG CAPSULE PO SCH (05:52)
[2020-07-24] MEDS: NICOTINE 21 MG/24 HOUR PATCH TD SCH (05:52)
[2020-07-24 06:43] VITALS: BP 125/72
[2020-07-24 08:15] VITALS: BP 118/79
[2020-07-24 08:35] LABS: COVID AG,FIA SOURCE NASOPHARYNGEAL
[2020-07-24] MEDS: LORazepam 2 MG TABLET PO PRN ×2 (08:39→15:57)
[2020-07-24] MEDS: HALOPERIDOL 5 MG TABLET PO PRN (08:39)
[2020-07-24] MEDS: IBUPROFEN 600 MG TABLET PO PRN ×2 (14:16→14:51)
[2020-07-24 16:45] VITALS: BP 129/77
[2020-07-24] MEDS ORDERED: MIRTAZAPINE 15 MG TABLET PO SCH (17:00)
[2020-07-24] MEDS ORDERED: OLANZapine 10 MG RAPDIS TABLET PO SCH (17:00)
[2020-07-24] MEDS ORDERED: MELATONIN 5 MG TABLET PO SCH (17:00)
[2020-07-24] MEDS: OLANZapine 10 MG RAPDIS TABLET PO SCH (17:04)
[2020-07-24] MEDS: MELATONIN 5 MG TABLET PO SCH (17:04)
[2020-07-24] MEDS: MIRTAZAPINE 15 MG TABLET PO SCH (17:05)
[2020-07-25 01:00] VITALS: BP 128/67
[2020-07-25] MEDS: THIAMINE 100 MG TABLET PO SCH ×2 (06:26→16:46)
[2020-07-25] MEDS: METOPROLOL TARTRATE 25 MG TABLET PO SCH (06:26)
[2020-07-25] MEDS: OMEGA-3/DHA/EPA/FISH OIL 1,000 MG CAPSULE PO SCH (06:26)
[2020-07-25] MEDS: GABAPENTIN 400 MG CAPSULE PO SCH (06:26)
[2020-07-25] MEDS: BuPROPion HCL XL 150 MG ER TABLET PO SCH (06:26)
[2020-07-25] MEDS: MULTIVITAMINS WITH MINERALS, THERAPEUTIC TABLET PO SCH (06:26)
[2020-07-25] MEDS: FOLIC ACID 1 MG TABLET PO SCH (06:26)
[2020-07-25] MEDS: CloNIDine HCL 0.1 MG TABLET PO SCH ×4 (06:26→21:04)
[2020-07-25] MEDS: NICOTINE 21 MG/24 HOUR PATCH TD SCH (06:27)
[2020-07-25] MEDS: LORazepam 2 MG TABLET PO PRN (08:38)
[2020-07-25] MEDS: HALOPERIDOL 5 MG TABLET PO PRN (08:38)
[2020-07-25 09:14] VITALS: BP 131/95
[2020-07-25 12:25] VITALS: BP 111/60
[2020-07-25 16:24] VITALS: BP 121/78
[2020-07-25] MEDS: MIRTAZAPINE 15 MG TABLET PO SCH (16:45)
[2020-07-25] MEDS: OLANZapine 10 MG RAPDIS TABLET PO SCH (16:46)
[2020-07-25] MEDS: FLUTICASONE PROPIONATE 50 MCG/SPRAY 16 GM NASAL SPRAY NASAL SCH (16:46)
[2020-07-25] MEDS: MELATONIN 5 MG TABLET PO SCH (16:46)
[2020-07-25 21:00] VITALS: BP 116/72
[2020-07-26 00:54] VITALS: BP 130/79
[2020-07-26] MEDS: CloNIDine HCL 0.1 MG TABLET PO SCH ×4 (05:53→22:00)
[2020-07-26] MEDS: FOLIC ACID 1 MG TABLET PO SCH (05:53)
[2020-07-26] MEDS: MULTIVITAMINS WITH MINERALS, THERAPEUTIC TABLET PO SCH (05:53)
[2020-07-26] MEDS: THIAMINE 100 MG TABLET PO SCH ×2 (05:53→17:05)
[2020-07-26] MEDS: BuPROPion HCL XL 150 MG ER TABLET PO SCH (05:54)
[2020-07-26] MEDS: METOPROLOL TARTRATE 25 MG TABLET PO SCH (05:54)
[2020-07-26] MEDS: GABAPENTIN 400 MG CAPSULE PO SCH (05:54)
[2020-07-26] MEDS: OMEGA-3/DHA/EPA/FISH OIL 1,000 MG CAPSULE PO SCH (05:54)
[2020-07-26 05:55] VITALS: BP 123/80
[2020-07-26] MEDS: NICOTINE 21 MG/24 HOUR PATCH TD SCH (05:58)
[2020-07-26] MEDS: QUEtiapine FUMARATE 100 MG TABLET PO PRN (08:25)
[2020-07-26] MEDS: FLUTICASONE PROPIONATE 50 MCG/SPRAY 16 GM NASAL SPRAY NASAL SCH ×2 (08:33→17:05)
[2020-07-26 08:57] VITALS: BP 124/76
[2020-07-26] MEDS: IBUPROFEN 600 MG TABLET PO PRN (13:19)
[2020-07-26 16:36] VITALS: BP 117/84
[2020-07-26] MEDS: MIRTAZAPINE 15 MG TABLET PO SCH (17:05)
[2020-07-26] MEDS: OLANZapine 10 MG RAPDIS TABLET PO SCH (17:05)
[2020-07-26] MEDS: MELATONIN 5 MG TABLET PO SCH (17:06)
[2020-07-27 01:21] VITALS: BP 118/77
[2020-07-27 05:54] VITALS: BP 127/74
[2020-07-27] MEDS: NICOTINE 21 MG/24 HOUR PATCH TD SCH (05:59)
[2020-07-27] MEDS: MULTIVITAMINS WITH MINERALS, THERAPEUTIC TABLET PO SCH (06:01)
[2020-07-27] MEDS: BuPROPion HCL XL 150 MG ER TABLET PO SCH (06:02)
[2020-07-27] MEDS: GABAPENTIN 400 MG CAPSULE PO SCH (06:02)
[2020-07-27] MEDS: FOLIC ACID 1 MG TABLET PO SCH (06:02)
[2020-07-27] MEDS: OMEGA-3/DHA/EPA/FISH OIL 1,000 MG CAPSULE PO SCH (06:02)
[2020-07-27] MEDS: CloNIDine HCL 0.1 MG TABLET PO SCH ×4 (06:02→21:37)
[2020-07-27] MEDS: METOPROLOL TARTRATE 25 MG TABLET PO SCH (06:03)
[2020-07-27] MEDS: THIAMINE 100 MG TABLET PO SCH ×2 (06:04→16:18)
[2020-07-27 08:10] VITALS: BP 136/80
[2020-07-27] MEDS: FLUTICASONE PROPIONATE 50 MCG/SPRAY 16 GM NASAL SPRAY NASAL SCH ×2 (09:04→16:18)
[2020-07-27] MEDS: LORazepam 2 MG TABLET PO PRN ×2 (10:28→14:35)
[2020-07-27] MEDS: MIRTAZAPINE 15 MG TABLET PO SCH (16:17)
[2020-07-27] MEDS: MELATONIN 5 MG TABLET PO SCH (16:17)
[2020-07-27] MEDS: OLANZapine 10 MG RAPDIS TABLET PO SCH (16:18)
[2020-07-27 16:19] VITALS: BP 114/69
[2020-07-27 21:36] VITALS: BP 115/58
[2020-07-28 05:06] VITALS: BP 118/71
[2020-07-28] MEDS: METOPROLOL TARTRATE 25 MG TABLET PO SCH (05:58)
[2020-07-28] MEDS: OMEGA-3/DHA/EPA/FISH OIL 1,000 MG CAPSULE PO SCH (05:58)
[2020-07-28] MEDS: MULTIVITAMINS WITH MINERALS, THERAPEUTIC TABLET PO SCH (05:58)
[2020-07-28] MEDS: BuPROPion HCL XL 150 MG ER TABLET PO SCH (05:58)
[2020-07-28] MEDS: GABAPENTIN 400 MG CAPSULE PO SCH (05:59)
[2020-07-28] MEDS: THIAMINE 100 MG TABLET PO SCH ×2 (05:59→17:04)
[2020-07-28] MEDS: CloNIDine HCL 0.1 MG TABLET PO SCH ×3 (05:59→17:05)
[2020-07-28] MEDS: FOLIC ACID 1 MG TABLET PO SCH (05:59)
[2020-07-28] MEDS: NICOTINE 21 MG/24 HOUR PATCH TD SCH (06:00)
[2020-07-28] MEDS: LORazepam 2 MG TABLET PO PRN ×2 (07:07→15:35)
[2020-07-28 08:34] VITALS: BP 114/71
[2020-07-28] MEDS: FLUTICASONE PROPIONATE 50 MCG/SPRAY 16 GM NASAL SPRAY NASAL SCH ×2 (08:59→17:06)
[2020-07-28] MEDS: QUEtiapine FUMARATE 100 MG TABLET PO PRN (11:15)
[2020-07-28 16:24] VITALS: BP 122/64
[2020-07-28] MEDS: MELATONIN 5 MG TABLET PO SCH (17:04)
[2020-07-28] MEDS: MIRTAZAPINE 15 MG TABLET PO SCH (17:05)
[2020-07-28] MEDS: OLANZapine 10 MG RAPDIS TABLET PO SCH (17:05)
[2020-07-29 00:38] VITALS: BP 119/68
[2020-07-29] MEDS: MULTIVITAMINS WITH MINERALS, THERAPEUTIC TABLET PO SCH (06:00)
[2020-07-29] MEDS: BuPROPion HCL XL 150 MG ER TABLET PO SCH (06:00)
[2020-07-29] MEDS: NICOTINE 21 MG/24 HOUR PATCH TD SCH (06:00)
[2020-07-29] MEDS: GABAPENTIN 400 MG CAPSULE PO SCH (06:01)
[2020-07-29] MEDS: METOPROLOL TARTRATE 25 MG TABLET PO SCH (06:01)
[2020-07-29] MEDS: OMEGA-3/DHA/EPA/FISH OIL 1,000 MG CAPSULE PO SCH (06:01)
[2020-07-29] MEDS: FOLIC ACID 1 MG TABLET PO SCH (06:01)
[2020-07-29] MEDS: THIAMINE 100 MG TABLET PO SCH ×2 (06:01→16:37)
[2020-07-29] MEDS: LORazepam 2 MG TABLET PO PRN (07:55)
[2020-07-29] MEDS: FLUTICASONE PROPIONATE 50 MCG/SPRAY 16 GM NASAL SPRAY NASAL SCH ×2 (07:55→16:37)
[2020-07-29 08:13] VITALS: BP 123/78
[2020-07-29] MEDS: QUEtiapine FUMARATE 100 MG TABLET PO PRN (10:03)
[2020-07-29] MEDS: IBUPROFEN 600 MG TABLET PO PRN (15:59)
[2020-07-29 16:00] VITALS: BP 155/86
[2020-07-29 17:00] VITALS: BP 136/73
[2020-07-29] MEDS: MELATONIN 5 MG TABLET PO SCH (17:03)
[2020-07-29] MEDS: MIRTAZAPINE 15 MG TABLET PO SCH (17:03)
[2020-07-29] MEDS: OLANZapine 10 MG RAPDIS TABLET PO SCH (17:03)
[2020-07-30 01:21] VITALS: BP 121/70
[2020-07-30] MEDS: NICOTINE 21 MG/24 HOUR PATCH TD SCH (05:27)
[2020-07-30] MEDS: BuPROPion HCL XL 150 MG ER TABLET PO SCH (05:28)
[2020-07-30] MEDS: METOPROLOL TARTRATE 25 MG TABLET PO SCH (05:28)
[2020-07-30] MEDS: OMEGA-3/DHA/EPA/FISH OIL 1,000 MG CAPSULE PO SCH (05:28)
[2020-07-30] MEDS: THIAMINE 100 MG TABLET PO SCH (05:28)
[2020-07-30] MEDS: MULTIVITAMINS WITH MINERALS, THERAPEUTIC TABLET PO SCH (05:28)
[2020-07-30] MEDS: FOLIC ACID 1 MG TABLET PO SCH (05:28)
[2020-07-30] MEDS: GABAPENTIN 400 MG CAPSULE PO SCH (06:12)
[2020-07-30] MEDS: FLUTICASONE PROPIONATE 50 MCG/SPRAY 16 GM NASAL SPRAY NASAL SCH (07:57)
[2020-07-30] MEDS ORDERED: OMEG-135 PO (08:14)
[2020-07-30] MEDS ORDERED: FLUT16H NASAL (08:16)
[2020-07-30] MEDS ORDERED: MELA5TAB3 PO (08:16)
[2020-07-30 08:22] VITALS: BP 148/94
== END 2020-07-30 09:50 | disposition home or self-care (01) | DRG 750 ==
LOC: EMS 14:14 → B3A 19:20 → B2S 07-22 19:16
PROVIDERS: ADMIT Psychiatry & Neurology Psychiatry; ATTEND Psychiatry & Neurology Psychiatry
DX: F25.1 Schizoaffective disorder, depressive type (principal); R45.851 Suicidal ideations; Z91.14 Patient's other noncompliance with medication regimen; D64.9 Anemia, unspecified; E03.9 Hypothyroidism, unspecified; F12.90 Cannabis use, unspecified, uncomplicated; F41.9 Anxiety disorder, unspecified; Z20.822 Contact with and (suspected) exposure to COVID-19; I10 Essential (primary) hypertension; Z79.899 Other long term (current) drug therapy
CPT/HCPCS: 87426; 99285; A9575; G0480; J1630; J2060